=== PATIENT | female | born 1960 | race Caucasian/White ===

== ENCOUNTER 2020-08-04 09:00 | Outpatient (RCR) | payer OTHER, SELFPAY ==
--- NOTE | 2020-08-04 09:05 | BH.SGPN.GN ---
Behaviors/Verbalizations/Mental Status: []Client alert and oriented, neatly dressed and groomed. Eye contact fair. Motor activity appropriate. Speech within normal limits. Affect flat, mood depressed and irritable. Thoughts linear, logical, no signs of hallucinations or delusions. Reviewed client?s symptom tracker, client is not an immediate risk to herself or others. Chronic suicidal ideations. Client Response/Progress/Benefit: C[] Client responded well to session, first day of IOP tx. Client was quiet, but did share her goals which were to gain self-esteem and reduce suicidal ideations. Client would also like to no longer use cutting to cope with difficult emotions. Client reports feeling okay this morning. Client received encouragement from peers and appeared to benefit from sharing with others. Will continue IOP tx to prevent decompensation, maintain safety, and increase healthy coping skills. Narrative Note: []
--- NOTE | 2020-08-04 10:09 | BH.SGPN.GN ---
Behaviors/Verbalizations/Mental Status: []Client alert and oriented, casually dressed and groomed. Eye contact fair to good. Motor activity appropriate. Speech within normal limits. Affect congruent, mood anxious and depressed. Thoughts linear, logical, no signs of hallucinations or delusions. Client Response/Progress/Benefit: []Client new to IOP group. Remaining an active participant AEB contributing some to discussion, taking notes, and engaging in group activity despite anxiety about doing so. Connected with the topic of pitfalls and attentive throughout group discussion on barriers that prevent from choosing a healthier path to mental wellness. Noted pitfalls have kept her from seeking help and working on her mental health in the past or led to giving up. Group worked together to identify examples of personal pitfalls which included; resentment/anger, stigma, shutting down, low motivation, making excuses, denial, distortions, and unhealthy coping. Client identified doubt and negative self-talk as personal pitfalls that have inhibited progress in the past. Mostly engaged during the activity AEB listening to direction from other participants, brainstorming with group, and providing supportive feedback throughout, However, ultimately quit during activity but did well to identify this was due to feeding into negative self-talk messages. Client benefited from group as she learned to better identify potential barriers to improving mental health symptoms. Client will continue IOP tx to promote application of healthy coping skills and reduce depression, improve self-esteem, and improve functioning. Narrative Note: []
--- NOTE | 2020-08-04 11:10 | BH.SGPN.GN ---
Behaviors/Verbalizations/Mental Status: []Client alert and oriented, casually dressed and groomed. Eye contact fair to good. Motor activity appropriate. Speech within normal limits. Affect congruent, mood anxious and depressed. Thoughts linear, logical, no signs of hallucinations or delusions. Client Response/Progress/Benefit: []Client receptive of session, engaged throughout AEB client actively listening, contributing some to discussion, as well as taking notes. Provided some personal examples of how pitfalls have impacted her and expressed connecting with fellow participants throughout group reflection. Client completed worksheet identifying personal pitfalls impacting mental health progress. Client shared she is currently struggling with negative thoughts, poor self-esteem, and focusing on past negative experiences. Attentive during group brainstorm of strategies to overcome pitfalls. Client will work on overcoming her pitfall of negative thinking by identifying and writing down more positive thoughts, as well as beginning to journal more regularly. Benefited from identifying personal pitfalls and strategies to overcome these pitfalls. Will continue IOP tx to improve symptom management, promote healthy change behaviors and improved coping, and prevent decompensation. Narrative Note: []
--- NOTE | 2020-08-04 11:33 | BH.COMM_ITS ---
Communication Note - Communication with Client Communication Note: Met with pt to complete initial paperwork. No significant changes since pre-admission screening. Completed [facility]. Current risk is moderate to severe. Hx of a couple suicide attempts via overdose () and one interrupted attempt via cutting (2020). Hx of chronic SI, with most recent thoughts of suicide being yesterday. Denied any intent to act on these thoughts. Shared her suicidal ideations have been easier to control since she was discharged from inpatient stay. Denies any active SI today. Protective factors. Future-oriented. No access to weapons.
--- NOTE | 2020-08-05 08:49 | BH.MTP ---
Master Treatment Plan - Patient Information Program Physician:: Dr. Mckenzie Pinto Primary Therapist:: Iliana PICKETT - Psychiatric Diagnoses Psychiatric Diagnoses:: Major depressive disorder, recurrent, severe without psychosis F33.2; borderline personality disorder; PTSD; alcohol use disorder (sober for 2 years); history of amphetamine, marijuana and cocaine use over for many years. Diagnosis Code(s):: F 33.2 - Estimated LOS Estimated LOS (in weeks):: 6 Problem/Goal #1 - Problem/Goal #1 Stated Goal:: Client will reduce depressive symptoms, SI, and negative thinking due major depressive disorder. Description of Barriers: Client reports a long-standing history of suicidal ideations, poor view of self, and unhealthy coping. Client presents with numerous negative core beliefs and distorted thought patterns that lead to self-harm, increase suicidal ideations, or cause relationship stress. Client reports limited supports and has a history of substance use. Functional Impact: Client is a 60-year-old female with a history of depression and borderline personality disorder. Client was recently discharged from [facility] on 08/01/20. Prior to admission, client reported suicidal ideations with a plan to kill herself on the anniversary of her mother's . Client had taken a knife into her outpatient therapy session with the intent to hurt herself and was admitted later that week. Client reports chronic history of suicidal ideations and has a history of two previous psychiatric admissions. History of self-harm via cutting. At admission to [facility], client endorsed poor sleep, low appetite, low energy, daily panic attacks, isolative behaviors, anhedonia, and negative thoughts. Client also admits to affective instability, stress-related paranoia, and poor self-image. Client has a history of substance abuse, but denies any current use. Client's symptoms are significantly impacting her social and occupational functioning. Goal Relevant Strengths/Supports: Client is established with [facility] mental health services. Client has an AA sponsor and her roommate Ada is a positive support. Client does not have access to weapons. - Objectives Objective #1 Stated Objective: Client will learn and utilize 2-3 healthy coping strategies to increase self-care and better manage depressive symptoms as shown by preventing decompensation of DSM-5 scores. Interventions: Through group and individual sessions, therapist will help client identify warning signs of depression. Therapist will teach client various coping skills to manage her symptoms and give client tangible resources to use to regulate emotions. Therapist will use cognitive restructuring techniques and help client gain awareness of negative thoughts that reinforce depressive cycles and help client reframe these thoughts. Discharge Criteria: Client will have met this goal when she can report learning and using at least 2 coping skills to manage depressive symptoms and show preventing decompensation of DSM-5 symptoms. Target Date: 09/15/20 Review Date: 09/01/20 Status: open Objective #2 Stated Objective: Client will identify and replace 2-3 negative thinking patterns that reinforce unhelpful action urges, SI, and negative self-talk. Interventions: Through groups and individual therapy, client will be provided with education on cognitive distortions, mistaken beliefs, and identifying and combating negative self-talk. Therapist will assist client in recognizing triggers for increased suicidal and depressive thought patterns. Therapist will help client explore connection between thoughts, feelings, and actions and help client reframe depressive thought patterns. Therapist will help client gain awareness of why client has developed negative thoughts and core beliefs of self. Therapist will use DBT and CBT techniques to challenge unhelpful thought patterns. Discharge Criteria: Client will have accomplished this goal when client can identify and replace at least 2 negative thinking patterns with more realistic, positive statements. Target Date: 09/15/20 Review Date: 09/01/20 Status: open Problem/Goal #2 - Problem/Goal #2 Stated Goal:: Will reduce impulsivity and anxiety through increasing emotional regulation skills Description of Barriers: Client reports a long-standing history of suicidal ideations, poor view of self, and unhealthy coping. Client presents with numerous negative core beliefs and distorted thought patterns that lead to self-harm, increase suicidal ideations, or cause relationship stress. Client reports limited supports and has a history of substance use. Functional Impact: Client is a 60-year-old female with a history of depression and borderline personality disorder. Client was recently discharged from [facility] on 08/01/20. Prior to admission, client reported suicidal ideations with a plan to kill herself on the anniversary of her mother's . Client had taken a knife into her outpatient therapy session with the intent to hurt herself and was admitted later that week. Client reports chronic history of suicidal ideations and has a history of two previous psychiatric admissions. History of self-harm via cutting. At admission to [facility], client endorsed poor sleep, low appetite, low energy, daily panic attacks, isolative behaviors, anhedonia, and negative thoughts. Client also admits to affective instability, stress-related paranoia, and poor self-image. Client has a history of substance abuse, but denies any current use. Client's symptoms are significantly impacting her social and occupational functioning. Goal Relevant Strengths/Supports: Client is established with [facility] for mental health services. Client has an AA sponsor and her roommate Ester is a positive support. Client does not have access to weapons. - Objectives Objective #1 Stated Objective: Client will identify 2 triggers and 2 coping skills to use when client experiences mood dysregulation and has increased urges to engage in unhealthy, impulsive coping skills. Interventions: Through individual and group counseling client will be provided with education on healthy coping skills to manage mood symptoms, impulse, and crisis behaviors. Therapist will provide information on healthy alternatives to emotion release. Individual therapist will teach client DBT techniques to increase emotional regulation and mindfulness. Therapist will also engage client to use self-compassion while working to change behaviors. Discharge Criteria: Client will have accomplished this goal when client can identify at least 2 triggers and 2 coping skills to increase mood stability and reduce unhealthy action urges. Target Date: 09/15/20 Review Date: 09/01/20 Status: open Objective #2 Stated Objective: Client will identify 2-3 anxiety/panic triggers and 2 coping skills to use when feeling anxious to manage anxiety as shown by preventing decompensation of her DSM-5 scores for anxiety. Interventions: Therapist will provide education on anxiety, avoidance behaviors, and maintenance cycles. Therapist will help client explore personal symptoms and warning signs of anxiety. Therapist will teach client coping skills to improve emotional regulation, mindfulness, and distress tolerance to help client cope with anxiety in the moment. Discharge Criteria: Client will have accomplished this goal when she can identify at least 2 triggers and report using 2 coping skills to manage anxiety. Additionally, client will have accomplished this goal AEB prevention of decompensation of DSM-5 scores for anxiety. Target Date: 09/15/20 Review Date: 09/01/20 Status: open
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
[2020-08-05 09:58] VITALS: BP 136/84; PULSE 82
--- NOTE | 2020-08-05 11:07 | BH.SGPN.GN ---
Behaviors/Verbalizations/Mental Status: []Client alert and oriented, neatly dressed and groomed. Eye contact good. Motor activity appropriate. Speech within normal limits. Affect constricted, mood dysthymic. Thoughts linear, logical, no signs of hallucinations or delusions. Client Response/Progress/Benefit: []Client an active participant throughout AEB contributing to discussion and taking notes. Client participated in the group activity highlighting the various barriers to effectively utilizing supports and strategies the group used. Client participated in discussion of the four types of support (emotion, tangible, informational, and social) and the group listed examples for all types. Client reports wanting to work on increasing emotional support through friends, mormon, and counseling. Client stated this will help client feel connected, less alone, and give client something to look forward to. Client plans to do this by continuing IOP and counseling as well as identifying who her current trusted supports are. Client seemed to benefit from identifying the type of support client wants to improve. Will continue IOP tx to prevent decompensation, maintain safety, and reduce self-harm. Narrative Note: []
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
--- NOTE | 2020-08-05 13:00 | BH.DR.ITP ---
Initial Treatment Plan Patient Information Visit Information: ADMISSION DATE: EXPECTED LOS: 4-6 weeks Problems/Symptoms Problem #1:: Depression Symptom:: Sadness, hopelessness, worthlessness, guilt, low energy, decreased appetite, decreased concentration, active and passive suicidal ideation history, passive thoughts of Problem #2:: Anxiety Symptom:: Rumination, worry, panic attacks, hypervigilance, avoidance
--- NOTE | 2020-08-06 09:00 | BH.SGPN.GN ---
Behaviors/Verbalizations/Mental Status: [] Eye contact is good. Motor activity is appropriate. Appearance is casual. Speech is Appropriate. Mood is depressed. Affect is flat. Thoughts are linear and logical. No evidence of psychosis. Reviewed daily check in sheet and pt reports 3/5 for suicidal thoughts and 1/5 for intent. Client Response/Progress/Benefit: [] Pt participated when prompted in group discussions. Attentive during short video on empathy and negative thinking. Emotion for today is depressed. She discussed her anxiety about talking in front of others as she feels that others are judging her. Also fearful that she will say something stupid. This has been an obstacle in the IOP program. Peers empathized with her and provided supportive feedback and reassurance. She discussed her history of self-injurious behaviors and how challenging it has been not to have access to certain items to cut to cope. Limited progress noted. Benefited from group support, feedback, and encouragment. Will continue in IOP to maintain safety, increase healthy coping skills, and improve functioning. Narrative Note: []
--- NOTE | 2020-08-06 10:00 | BH.SGPN.GN ---
Behaviors/Verbalizations/Mental Status: [] Eye contact is good. Motor activity is appropriate. Appearance is casual. Speech is Appropriate. Mood is depressed. Affect is flat. Thoughts are linear and logical. No evidence of psychosis. Client Response/Progress/Benefit: [] Pt participated at times during group discussion. Attentive during psychoeducation on different types of anxiety disorders. Along with peers provided insight on the definition of anxiety as well as the impact of anxiety which include; poor sleep, not completing tasks, poor concentration, impacts relationships, impacts work, and decreases appetite. Pt choose not to sure when peers were identifying physical signs of anxiety . Worked with peers to identify safety behaviors which included avoidance, self-harm, distraction, lashing out, and substance use. Benefited from increased insight and awareness from group discussions. Will continue in IOP to maintain safety and to stabilize mood. Narrative Note: []
--- NOTE | 2020-08-06 11:15 | BH.SGPN.GN ---
Behaviors/Verbalizations/Mental Status: []Client alert and oriented, casually dressed and groomed. Eye contact fair. Motor activity appropriate. Speech within normal limits. Affect constricted, mood anxious.. Thoughts linear, logical, no signs of hallucinations or delusions. Client Response/Progress/Benefit: []Client was an engaged participant AEB pt providing input at times and listening attentively to peers. Reviewed anxious thoughts and safety behaviors client engages in that reinforce anxiety. Identified personal safety behaviors to include: isolation, defensiveness and self-harm. Attentive during psychoeducation on mindfulness coping skills and their impact on mental health wellness. Group was able to identify self-soothing and mind-based coping skills which included: 5-senses, meditation, deep breathing, journaling, and body scan. Client would like to work on daily practice of walking and engaging her 5 senses. Appeared to benefit from increasing repertoire of anxiety reduction skills. Client will continue IOP tx to increase healthy coping skills, challenge distorted thoughts, and prevent decompensation. Narrative Note: []
--- NOTE | 2020-08-07 09:00 | BH.SGPN.GN ---
Behaviors/Verbalizations/Mental Status: [] Eye contact is good. Motor activity is appropriate. Appearance is casual. Speech is Appropriate. Mood is depressed. Affect is flat. Thoughts are linear and logical. No evidence of psychosis. Reviewed daily check in sheet and pt reports 2/5 for suicidal thoughts and 1/5 for intent. Client Response/Progress/Benefit: [] Pt spoke when prompted. Attentive during short video. Shared with the group that she did something wrong yesterday however would not elaborate much. Emotion for today is drained. Looking forward to having her grandnephews over this evening. Group was supportive and provided encouragement. Reframed thoughts that she is a failure and that progress is only linear in MH. Pt appeared to responsive to feedback. No progress noted. Benefited from group feedback. Will continue in IOP to maintain safety and prevent decompensation. Will meet with pt after group to further inquire what occurred yesterday. Narrative Note: []
--- NOTE | 2020-08-07 10:56 | BH.MDN_ITS ---
Multi-Disciplinary Note - Note 60-min Individual Time Started:: 10:00 Date: 08/07/20 Purpose of session/treatment goals addressed:: Pt was tearful in-between groups. Based on check-in therapist met with patient to process current concerns. Eye Contact:: Fair Motor Activity:: Restless Appearance:: Casual Speech:: Appropriate Mood:: Anxious, Depressed Affect:: Congruent Thoughts:: Linear, Logical, No evidence of hallucinations/delusions noted Staff Interventions:: Reviewed safety plan. Risk assessment conducted verbally. Identified alternatives that could have been utilized yesterday during self- injurious event. Identified skills to utilize this weekend (art). Utilized NM techniques to elicit change. Challenged stigma associated with mental health. Utilized positive psychology approaches to instill hope. Called roommate regarding scissors. No access to weapons (All guns removed). Client Response:: Pt tearful. States that she cut herself superficially last night. Showed the scars are in fact superficially. Reports 2 small cuts. Feels guilt and is remorseful about her actions. I feel like I let everyone down and I just want to run away. Reports that she felt depressed and lonely. No trigger or significant stressors I don't know maybe the rain just feels restless. She utilized small scissors which are for grooming. Denies that she had any intent to kill herself. Cut to feel feel better. Reports that cutting is a coping skill to make herself feel better. I feel like a failure... I should not have done that ... There is something wrong with me. We challenged these thoughts and provided evidence that she is resilient and not a failure. This helped her mood. Praised for being honest. She has had these in her possession and has not cut for 11 days which is improvement. Reports that her SI has decreased since starting the program. Her scores where a point less on symptom tracker today than previous days. She is future-oriented. Protective factors. Looking forward that seeing family this weekend. Contracts for safety. Again denies active SI, plan, or intent.We reviewed her safety plan and reviewed the events yesterday using it as a learning experience rather than a punishment. Identified other forms of coping that she could try if she thinks this way again. Identified affirmations to utilize. Pointed out resiliency and was receptive to positive psychology approaches rather than pointing out flaws. I feel like a burden and I'm stupid. Pointed out her insightful comments in group and peers nodding in agreement. Able to identify positives. Risks/Concerns:: Long-standing suicidal thoughts which per pt have reduced in severity, frequency, and intensity since starting the program. Denies active SI, plan, or intent. Future-oriented to events over the weekend. Pt reports she self-harmed to cope. No intent to kill self. She was honest with staff today. Reviewed safety plan that she has had established in the past which involves warning signs, internal skills to utilize, external support to utilize, and if still overwhelmed crisis numbers to contact. No criteria for involuntary admission or to call police. Does not present as imminent danger due to no active SI, plan, or intent. Fleeting SI and thoughts of are long-standing. Superficial cuts with no plan or intent last night. Honest with staff today. No access to guns. Progress Toward Goals/Plan:: Progress noted per pt and daily symptoms tracker for past 4 days. Reduced intensity of SI. Consistent with IOP and enjoys therapist, peers, and staff. Disclosed to staff self-harm today and told staff about scissors earlier in the week. Insight into healthy coping skills to utilize. Plan is to continue in IOP to maintain safety, stabilize mood, and to improve functioning. Call was placed to pt's friend/roommate regarding the scissors who will remove. Pt aware of this call and in agreement. Smiling and joking towards the end of the session. Does well with guidance to manage overwhelming thoughts and urges. Will need more concrete skills and plan for the future. Time Stopped:: 11:00
--- NOTE | 2020-08-10 09:10 | BH.SGPN.GN ---
Behaviors/Verbalizations/Mental Status: [] Eye contact is good. Motor activity is appropriate. Appearance is casual. Speech is Appropriate. Mood is depressed. Affect is flat. Thoughts are linear and logical. No evidence of psychosis. Reviewed daily check in sheet and pt reports 2/5 for suicidal thoughts and 1/5 for intent which is baseline for pt since entering IOP. Client Response/Progress/Benefit: [] Pt was attentive during group discussion on blame however spoke little. Spoke when prompted. Emotion for today is nervous. States that Monday and Monday were good days this weekend, however she struggled on Monday. Reports that she urge to complete self-injurious behaviors. Rather that isolation and ruminate she utilize her support and communicated her needs. Pt and friend went out shopping which was helpful. Support and distraction were helpful and she did not cut self. Progress noted as she was able to use healthy skills to manage overwhelming emotions. Benefited from group support, encouragement, and feedback. Will continue in [facility] to maintain safety, improve functioning, and prevent relapse. Narrative Note: []
--- NOTE | 2020-08-10 10:15 | BH.SGPN.GN ---
Behaviors/Verbalizations/Mental Status: []Client alert and oriented, casually dressed and neatly groomed. Eye contact good. Motor activity appropriate. Speech within normal limits. Affect congruent, mood anxious and dysthymic. Thoughts linear, logical, no signs of hallucinations or delusions. Client Response/Progress/Benefit: []Pt actively engaged in group discussion, taking notes, and listened attentively to others. Pt reflected on quote stating that we sometimes listen to get our point across but aren?t listening to how the person responds. Shared this can result in more conflict rather than resolve it. Reports she struggles with properly managing conflict because she tends to shut down and avoid taking about her thoughts and feelings. Pt stated environment can impact conflict style as you may respond differently depending on if you trust the other person. Pt attentive and engaged during psychoeducation about different conflict styles (avoidant, accommodating, cooperative, and competing). Pt identified most often uses avoiding for external conflict. Seemed to benefit from increased awareness of the different conflict styles. Pt to continue IOP to continue to promote use of healthy coping skills, improve thought challenge skills, and prevent decompensation. Narrative Note: []
--- NOTE | 2020-08-10 11:21 | BH.SGPN.GN ---
Behaviors/Verbalizations/Mental Status: []Client alert and oriented, casually dressed and neatly groomed. Eye contact good. Motor activity appropriate. Speech within normal limits. Affect congruent, mood dysthymic and anxious. Thoughts linear, logical, no signs of hallucinations or delusions. Client Response/Progress/Benefit: []Client engaged in session AEB contributing input to discussion, attentively listening to others, and taking notes throughout. Client providing feedback throughout discussion reviewing remaining conflict resolution styles. Contributed to discussion on strategies for more effectively managing conflict in own life. Client identified wanting to use more collaborative approaches to conflict as she typically gets upset and shuts down and completely avoids conflict. Shared she could begin working on doing so by improving upon her willingness to communicate more when upset rather than shutting down immediately. Appeared to benefit from learning strategies to better manage conflict. Will continue IOP tx to continue to improve management of symptoms, improve healthy coping, and improve daily functioning. Narrative Note: []
--- NOTE | 2020-08-11 09:02 | BH.SGPN.GN ---
Behaviors/Verbalizations/Mental Status: [] Pt eye contact fair, casually dressed, motor activity appropriate, speech normal rate and tone, mood anxious, congruent affect, thoughts linear and intact, no evidence of delusions or hallucinations. Patient indicated a 3/5, with 5 being severe, for suicidal ideation and a 0/5 for suicidal intent on daily symptom tracker. This is a decrease in her baseline. Client Response/Progress/Benefit: []Patient engaged participant as evidenced by sharing thoughts and feelings and listening attentively to peers. Patient shared last night she was experiencing time because her negative and anxious thoughts would not stop. Patient reports she had a difficult time sleeping which is something she often struggles with. Patient reported on the way to groups this morning she started crying for no reason. Patient stated she experienced negative thought patterns because does understand why she is crying and has worries that she will always be like this. Seemed to benefit from therapist helping her challenge disorder thought patterns and receiving education about core beliefs. Patient able to identify positives as mowing grass, getting her pool ready for the summer and made it to IOP today. Patient to continue IOP to improve emotional regulation, challenge disorder thought patterns, and prevent decompensation. Narrative Note: []
--- NOTE | 2020-08-11 10:10 | BH.SGPN.GN ---
Behaviors/Verbalizations/Mental Status: []Eye contact is good. Motor activity is appropriate. Appearance is neat and casual. Speech is Appropriate. Mood is anxious and depressed. Affect is congruent. Thoughts are linear and logical. No evidence of psychosis. Client Response/Progress/Benefit: [] Pt was an engaged participant in group discussions and activity. Shared thoughts on the quote, noting that ?we won? reach our big goals if we ignore small accomplishments? and expressed learning this from own past experiences in not giving herself credit for personal accomplishments. Worked with group members to identify the benefits of setting goals which include: sense of accomplishment, builds self-esteem, increases motivation, holds us accountable, and helps to measure progress. Worked with peers to identify the barriers to setting goals or things that keep us from accomplishing goals. Pt identified personal barrier to achieving goals as self-doubt. Attentive during psycho-education on developing SMART (Specific, Measurable, Achievable, Realistic, Timely) goals. Benefited from education on the benefits of goal-setting and increased insight into skills to set realistic and attainable goals. Narrative Note: []
--- NOTE | 2020-08-11 11:10 | BH.SGPN.GN ---
Behaviors/Verbalizations/Mental Status: []Client alert and oriented, neatly dressed and groomed. Eye contact good. Motor activity appropriate. Speech within normal limits. Affect constricted, mood dysthymic. Thoughts linear, logical, no signs of hallucinations or delusions. Client Response/Progress/Benefit: []Client was engaged during discussion, did well to complete activity and process with the group. Client was willing to complete the worksheet in which she was challenged to develop a personal SMART goal. Client chose the goal to practice self-care for 10 minutes a day for a week. Client stated this will benefit her as it will keep her from self-harming and improve self-worth. Client identified barriers which included: lack of motivation, negative self-talk, and pride that keeps client from asking for help. Client worked with her partner in group to identify solutions for her barriers, and they were able to identify a solution for each barrier. Benefited from this group by developing a short-term SMART goal related to mental health. Client will continue IOP tx to prevent decompensation, maintain safety, and increase emotional regulation skills. Narrative Note: []
--- NOTE | 2020-08-11 15:07 | BH.MDN_ITS ---
Multi-Disciplinary Note - Note 30-min Individual Time Started:: 12:13 Date: 08/11/20 Purpose of session/treatment goals addressed:: The purpose of this session was to gather information on client's current stressors, symptoms, and treatment goals. Another goal was to build rapport and provide psychoeducation. Eye Contact:: Good Motor Activity:: Appropriate Appearance:: Casual Speech:: Appropriate Mood:: Dysthymic Affect:: Constricted Thoughts:: Linear, Logical, No evidence of hallucinations/delusions noted Staff Interventions:: Therapist used active listening and open-ended questions to explore client's current stressors, symptoms, and treatment goals. Therapist used strengths perspective to build rapport and provide emotional support. Therapist provided psychoeducation on borderline personality disorder and emotional regulation. Therapist reviewed some mindfulness skills client can try to when feeling overwhelmed. Client Response:: Client responded well to session, open to meeting with therapist. Client shared she feels hopeless today because she read that borderline personality disorder is the hardest thing to cope with. This made client feel overwhelmed and as though she would have these problems for the rest of her life. Receptive to thought challenging by therapist and able to see how client has control in her treatment. Reviewed the symptoms of BPD and client connected with fear of abandonment, lack of self-esteem and self-worth, poor emotional regulation, history of self-harm, and interpersonal relationship issues. Client shared she often isolates and withdraws from supports rather than asking for help. Client reported when her supports do not read her mind I assume they hate me. Able to use an example from group today to challenge mind- reading which was helpful. Discussed ways to manage BPD symptoms which included mindfulness and distress tolerance. Client agreeable to practice a guided imagery tonight and to refrain from cutting. Risks/Concerns:: Client admits to chronic SI that at this time is passive and fleeting. Client denies any active suicidal ideations, plan, or intent as of 08/11/20. Client denies any access to weapons such as knives, scissors, or guns. Client is future oriented and plans to get dinner with her sister samantha. Progress Toward Goals/Plan:: Client recently started IOP tx, so no progress to document. Client continues to struggle with mood dysregulation, chronic SI, negative self-talk, and fear of abandonment, and self-harming behaviors. Client was receptive to learning about BPD and this gave client some hope about her prognosis. Client will continue IOP tx to prevent decompensation, reduce urges to self-harm, and find alternative coping skills to promote mood stability. Time Stopped:: 12:45
--- NOTE | 2020-08-12 09:00 | BH.SGPN.GN ---
Behaviors/Verbalizations/Mental Status: [] Eye contact is good. Motor activity is appropriate. Appearance is disheveled. Speech is Appropriate. Mood is depressed. Affect is flat. Thoughts are linear and logical. No evidence of psychosis. Reviewed daily check in sheet and pt reports 2/5 for suicidal thoughts and 1/5 for intent. These are baseline for pt. Client Response/Progress/Benefit: [] Pt participated at times. Attentive. Shared with the group that she had dinner with a family member last night. She was extremely anxious about this event and was ruminating exclusively. She states that it actually went well and was positive. Insight that her ruminating and thinking about worst case scenario was not helpful. Emotion for today is happy. Progress noted per pt report. Benefited from group support, encouragment, and feedback. Will continue in IOP to maintain safety, increase healthy coping, and improve functioning. Narrative Note: []
--- NOTE | 2020-08-12 10:10 | BH.SGPN.GN ---
Behaviors/Verbalizations/Mental Status: []Client alert and oriented, neatly dressed and groomed. Eye contact good. Motor activity appropriate. Speech within normal limits. Affect constricted, mood depressed. Thoughts linear, logical, no signs of hallucinations or delusions. Client Response/Progress/Benefit: []Client engaged participant AEB listening to peers and taking notes. Client was quiet, but appeared attentive. Group gave examples of unhealthy coping skills such as avoiding, drugs/alcohol, isolation, and impulsive spending. Group shared that people tend to use unhealthy coping skills because they are easier and provide quick relief. Client participated in the group activity and connected that a healthy foundation of coping skills is composed of healthy internal and external coping skills. Client seemed to benefit from increased awareness of the importance of increasing healthy coping skills and consequences of utilizing unhealthy coping skills. Will continue IOP tx to prevent decompensation and increase emotional regulation skills. Narrative Note: []
--- NOTE | 2020-08-12 11:12 | BH.SGPN.GN ---
Behaviors/Verbalizations/Mental Status: []Client alert and oriented, casually dressed and groomed. Eye contact good. Motor activity appropriate. Speech within normal limits. Affect congruent, mood anxious and depressed. Thoughts linear, logical, no signs of hallucinations or delusions Client Response/Progress/Benefit: []Client responded well to session, taking notes, though remaining a mostly passive participant throughout. Did well to connect with the examples suggested by fellow participants. Group discussed the different categories of coping skills which included distraction, emotional release, grounding, self-love, and thought challenging. Client participated in creating a coping skills ?menu? from the five categories of coping skills. Client's coping skill menu included: journaling, swimming, deep breathing, and thought challenging. Client noted she wants to get better at using thought challenge skills on a more consistent basis as she often struggles with negative self-talk. Appeared to benefit from increasing repertoire of healthy coping skills. Will continue tx to improve daily functioning, increase healthy coping skill application, and further improve mental health sx management. Narrative Note: []
--- NOTE | 2020-08-13 09:00 | BH.SGPN.GN ---
Behaviors/Verbalizations/Mental Status: []client alert and oriented, neatly dressed and groomed. Eye contact good. Motor activity appropriate. Speech within normal limits. Affect flat, mood depressed. Thoughts linear, logical, no signs of hallucinations or delusions. Reviewed client's symptom tracker, reports 3/5 for thoughts of suicide an 2/5 for risk. Therapist will follow up with client and further assess. Client Response/Progress/Benefit: []Client responded well to session, receptive to support from peers. Client reports feeling spaced out this morning due to having a difficult night last night. Client shared she had a session with her outpatient therapist and she didn't give me what I wanted so I went home and sobbed. Client reported she was feeling depressed and wanted to self-harm, but instead she reached out to her roommate for support. Client struggles to give herself credit and minimized her coping efforts, but the group helped client challenge this. Appeared to benefit from group support and from using opposite action. Progress limited as client recently started IOP. Will continue IOP tx to prevent decompensation, reduce SI, and increase emotional regulation skills. Narrative Note: []
--- NOTE | 2020-08-13 10:10 | BH.SGPN.GN ---
Behaviors/Verbalizations/Mental Status: [] Eye contact is good. Motor activity is appropriate. Appearance is casual. Speech is Appropriate. Mood is depressed. Affect is flat. Thoughts are linear and logical. No evidence of psychosis. Client Response/Progress/Benefit: [] Pt participated at times during group discussion and activity. Attentive during psychoeducation. Pt along with peers were able to identify common emotions (both positive and negative) associated with change. Group was able to identify the benefits to making changes such as; personal growth, increased self-esteem, improve mindset, decrease stress, improve emotional health, increase healthy skills, and to get out of same old challenges. Pt and peers were also able to identify some obstacles to making changes which included; low motivation, lack of support, difficult to get out of comfort zone, fear of change, fear of the unknown, fear of repeating past, vulnerability, and asking for help. Pt benefited from group by increasing awareness of emotions and obstacles associated with making changes. Pt will continue in IOP to maintain safety, increase healthy coping, and to prevent decompensation. Narrative Note: []
--- NOTE | 2020-08-13 11:15 | BH.SGPN.GN ---
Behaviors/Verbalizations/Mental Status: []Client alert and oriented, casually dressed and groomed. Eye contact fair. Motor activity appropriate. Speech within normal limits. Affect constricted, mood anxious. Thoughts linear, logical, no signs of hallucinations or delusions. Client Response/Progress/Benefit: []Client responded well to session AEB providing input at times during discussion, engaging in activity, and listening attentively to peers. Client contributed during psychoeducation on the change process and different emotions in each stage of change. Client reports belief she is currently in between contemplation and preparation stages of change. Client stated fear is what is holding her back from getting to preparation stage of change. Client stated reminding self of the potential positives of change could help her overcome current barrier of fear. Appeared to benefit from identifying what stage of change client is in and identifying strategies to overcome barriers. Will continue IOP tx to stabilize moods, increase healthy coping and prevent decompensation.
--- NOTE | 2020-08-13 13:43 | BH.MDN ---
Multi-Disciplinary Note - Note 30-min Individual Time Started:: 12:10 Date: 08/13/20 Purpose of session/treatment goals addressed:: To address current symptoms, assess risk, and review healthy coping skills for the weekend. Eye Contact:: Good Motor Activity:: Appropriate Appearance:: Casual Speech:: Soft Mood:: Dysthymic Affect:: Constricted Thoughts:: Other - evidence of mildly paranoid thoughts, No evidence of hallucinations/delusions noted Staff Interventions:: Therapist used active listening and provided emotional support to client. Therapist processed client's recent stressors, triggers, and engagement in self-harm. Therapist used gentle thought challenging as well as self-compassion techniques. Therapist assessed risk and client does not appear as an immediate risk to herself or others. Therapist helped client develop several positive affirmation statements and then wrote these on sticky notes. Client Response:: Client responded well to session, open to meeting with therapist. Client stated last night was not good and client has been struggling this morning as a result. Client reports she was triggered during her therapy session yesterday with her outpatient therapist. Client shared I don't know if it was my thinking, or if she really is treating me different. Discussed looking at the evidence rather than making assumptions based off emotions. Client admits to struggling with assuming what others think which causes paranoia and leads to impulsive behaviors. Client reported she cut last night after her therapy session, but stopped herself after a bit and reached out to her roommate for help. Client receptive to gentle thought challenging as well as coming up with affirmations. Client's affirmations read: you are okay, this will pass, look at the evidence, and people do care about you. Client will hang these up on her mirror and reports they will be helpful. Client also agreeable to doing art, walking, or going outside as an alternative to self-harm. Client will attend [facility] on Monday. Risks/Concerns:: Client's daily symptom tracker was a 3/5 for thoughts of suicide and 2/5 for risk. Client admits to superficial cutting last night that does not require stitches, but did leave a anabel. Client's roommate is aware and will continue to monitor client. Client denies any active suicidal ideations, plan, or intent as of 08/13/20. Client is future oriented and reports she wants to live because I want to get better. No access to weapons. Reports ability to maintain safety. Progress Toward Goals/Plan:: Client recently started IOP tx, so no progress to document. Client reports benefiting from the structure of IOP as well as the support she gets from staff and peers. Client was able to challenge negative thoughts easier today. Client continues to struggle with mood dysregulation, chronic SI, negative self-talk, and fear of abandonment, stress-related paranoia, impulsivity, and self-harming behaviors. Client was receptive to writing out affirmations and hanging them up on her mirror. Client will continue IOP tx to prevent decompensation, reduce urges to self-harm, and replace distorted thought patterns. Time Stopped:: 12:35
--- NOTE | 2020-08-17 09:00 | BH.SGPN.GN ---
Behaviors/Verbalizations/Mental Status: [] Eye contact is good. Motor activity is appropriate. Appearance is casual. Speech is Appropriate. Mood is depressed. Affect is flat. Thoughts are linear and logical. No evidence of psychosis. Reviewed daily check in sheet and pt reports 2/0 for suicidal thoughts and 0/5 for intent. Client Response/Progress/Benefit: [] Pt participated at times during group discussion. Attentive. Emotion for today is going with the flow. Shared that she struggled at times over the weekend with urges to self-harm however did utilize support and some skills learned in IOP. Admits to getting angry at support however insight that support is trying to help. Progress noted as she utilized skills and support when overwhelmed rather the isolation and self-harm. Benefited from group support, encournagment, and feedback. Will continue in IOP to maintain safety, stabilize mood, and improve functioning to return to work. Narrative Note: []
--- NOTE | 2020-08-17 10:05 | BH.SGPN.GN ---
Behaviors/Verbalizations/Mental Status: []Client alert and oriented, neatly dressed and groomed. Eye contact good. Motor activity appropriate. Speech within normal limits. Affect constricted, mood dysthymic. Thoughts linear, logical, no signs of hallucinations or delusions. Client Response/Progress/Benefit: []Pt was mostly a passive participant in group discussion, but took notes and provided some input. Connected with quote. Attentive during psychoeducation. Pt worked with group to identify forces that can impact growth and overall mental health. Pt was doing a lot of nodding during the metaphor and shared that there are times in life when a person might need someone else to ?help get us in the right direction.? Group discussed examples of positive forces such as healthy coping skills and insight as well as negative forces such as distorted thoughts. Pt benefited from increased awareness of the impact positive and negative forces can have on mental health and personal growth. Will continue IOP tx to learn healthy coping skills, increase emotional regulation skills, and reduce self-harming behaviors. Narrative Note: []
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
--- NOTE | 2020-08-18 09:00 | BH.SGPN.GN ---
Behaviors/Verbalizations/Mental Status: [] Pt eye contact fair to good, casually dressed, motor activity appropriate, speech normal rate and tone, mood anxious and dysthymic, constricted affect, thoughts linear and intact, no evidence of delusions or hallucinations. Patient indicated suicidal ideation as 2/5, denies any plan, and intent rated as 1/5 which is consistent with pt baseline. Client Response/Progress/Benefit: [] Patient receptive of session, engaged throughout AEB sharing thoughts and feelings with group. Identified emotion for the day as ?confused?, noting this is due to experiencing increased anxiety throughout out the night with no apparent trigger. Client shared that she had a positive day yesterday and even went to lunch with a friend which had been a very validating experience. Client noted she has been trying to challenge anxious thoughts and is working on encouraging herself through positive self-talk and deep breathing. Identified this as progress as she usually ruminates throughout the day when having increased anxiety. Receptive of and appeared to benefit from group encouragement and support. Patient to continue IOP to promote healthy change behaviors, continue to improve sx management and mood stability, and prevent decompensation. Narrative Note: []
--- NOTE | 2020-08-18 10:20 | BH.SGPN.GN ---
Behaviors/Verbalizations/Mental Status: []Client alert and oriented, neatly dressed and groomed. Eye contact good. Motor activity appropriate. Speech within normal limits. Affect constricted, mood depressed. Thoughts linear, logical, no evidence of hallucinations or delusions. Client Response/Progress/Benefit: []Client responded well to session, attentive and contributing to discussion. Client worked cooperatively with the group to identify factors that contributed to how we define ourselves which included: upbringing, core beliefs, trauma, social media, past failures, and mental health. Group defined and discussed social and perceived stigma. Client reported she has experienced the impacts of perceived and social mental health stigma. Client shared she often internalizes stigma and has labeled herself as ?a psycho? because of her mental health symptoms. Client also shares that client fears being judged for her mental health, so she struggles to reach out for help. Client seemed to benefit from increased awareness of how mental health stigma can impact view of self. Client to continue IOP tx to prevent decompensation, increase emotional regulation skills, and improve daily functioning. Narrative Note: []
--- NOTE | 2020-08-18 11:15 | BH.SGPN.GN ---
Behaviors/Verbalizations/Mental Status: []Client alert and oriented, casually dressed, hygiene appeared to be tended to. Eye contact fair. Motor activity appropriate. Speech within normal limits. Affect constricted, mood anxious. Thoughts linear, logical, no signs of hallucinations or delusions. Client Response/Progress/Benefit: []Client engaged participant AEB pt providing input during discussion, taking notes and listened attentively to peers. Client worked with group to identify what mental stigma has prevented them from doing. Group brainstormed strategies to combat social and perceived stigma which included: educating others, no longer joking about mental illness , being open about mental health, self-compassion and not reinforcing stigma with behaviors or labels. Client stated she will attempt to decrease perceived stigma by getting out of the house more often and agree to go out when friends ask her. Client shared she often will tell others no when asked if she wants to do something then will have distorted thoughts that no one likes me. Client able to connect how that behavior sets her up. Appeared to benefit from increasing awareness of strategies to combat stigma. Will continue IOP tx to increase healthy coping, improve daily functioning and prevent decompensation. Narrative Note: []
--- NOTE | 2020-08-20 09:00 | BH.SGPN.GN ---
Behaviors/Verbalizations/Mental Status: [] Eye contact is good. Motor activity is appropriate. Appearance is casual. Speech is Appropriate. Mood is depressed. Affect is flat. Thoughts are linear and logical. No evidence of psychosis. Reviewed daily check in sheet and pt was a 2/5 for suicidal thoughts and 0/5 for intent. Client Response/Progress/Benefit: [] Pt participated at times during group discussion. Attentive. Provided appropriate feedback. Shared that mental health win was that she was able to utilize skills to make it through a tough day and make it a good day. Briefly shared that she was overwhelmed however was able to push through. Think is more hopeful and less pessimistic. Future-oriented. Progress noted per pt report. Benefited from group discussion, support, and feedback. Will continue in IOP to maintain safety and increase healthy coping skills. Narrative Note: []
--- NOTE | 2020-08-20 10:10 | BH.SGPN.GN ---
Behaviors/Verbalizations/Mental Status: []Client alert and oriented, neatly dressed and groomed. Eye contact good. Motor activity appropriate. Speech within normal limits. Affect constricted, mood dysthymic. Thoughts linear, logical, no signs of hallucinations or delusions. Client Response/Progress/Benefit: []Pt was an active participant in group discussion and completed group worksheet. Attentive nd taking notes. Group worked together to define anger and discussed the ways anger can impact one internally and externally. Pt reported that anger can be triggered by internal thoughts/feelings or external situations. Pt completed the iceberg exercise and identified emotions that tend to ?live under the surface? of anger. Pt also gained awareness of her typical responses to anger which included: crying, speaking before thinking, avoiding others, ?snapping? at others, and negative self-talk. Pt acknowledges that feeling misunderstand or not important often lead to anger. Benefited from group by increasing understanding of the impact of anger on mental health. Will continue IOP tx to prevent decompensation, improve emotional regulation skills, and reduce the use of unhealthy coping skills. Narrative Note: []
--- NOTE | 2020-08-20 11:12 | BH.SGPN.GN ---
Behaviors/Verbalizations/Mental Status: []Client alert and oriented, casually dressed and groomed. Eye contact good. Motor activity appropriate. Speech within normal limits. Affect congruent, mood dysthymic. Thoughts linear, logical, no signs of hallucinations or delusions. Client Response/Progress/Benefit: []Pt was engaged throughout AEB participating in challenge activity and processing how skills used in activity could relate back to healthy skills for anger management in daily life. Did well to challenge negative thoughts and continue to participate despite noting self-doubt during activity. Contributed as group brainstormed healthy coping skills for better managing anger which included: music, exercise, changing the temperature and environment, art, STOPP, and journaling. Pt expressed relating to how self-doubt and fear sometimes manifests as anger. Pt appeared to benefit from identifying different techniques to manage anger as well as gaining awareness of potential consequences of unmanaged anger. Pt selected the reaching out to supports and exercise as coping skills she would like to try to better regulate anger. Progress noted as pt reports increased use of internal coping mechanisms to manage anxiety rather than relying solely on external. Will continue IOP tx to promote the continued use of healthy coping skills, improve consistent mood stability and use of distress tolerance skills, and further decrease negative thinking. Narrative Note: []
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
--- NOTE | 2020-08-21 10:12 | BH.SGPN.GN ---
Behaviors/Verbalizations/Mental Status: []Client alert and oriented, casually dressed, hygiene appeared to be tended to. Eye contact fair. Motor activity appropriate. Speech within normal limits. Affect constricted, mood anxious. Thoughts linear, logical, no signs of hallucinations or delusions. Client Response/Progress/Benefit: []Client mostly passive participant AEB client providing limited input however did appear attentive to others, taking notes and engaged in activity. Client listened to group to identify impacts of fearing failure. Attentive to group identifying how fear of failure can form which includes: past failures, family dynamics, comparing self to others, and high expectations. Client seemed to connect how failures can lead to positive changes. Client appeared to benefit from gaining awareness of the impact fear of failure can have on one?s mental health and wellbeing. Will continue IOP to continue practicing use of healthy coping, challenge negative thought patterns and prevent decompensation. Narrative Note: []
--- NOTE | 2020-08-21 11:12 | BH.SGPN.GN ---
Behaviors/Verbalizations/Mental Status: []Client alert and oriented, casually dressed and groomed. Eye contact good. Motor activity WNL. Speech within normal limits. Affect constricted, mood anxious and dysthymic. Thoughts linear, logical, no signs of hallucinations or delusions. Client Response/Progress/Benefit: []Client responded well to session, engaged and actively participating throughout. Client completed the fear of failure worksheet and reported that fear of failure has kept client from moving forward in her life and ?getting to the other side of the unknown.? Client able to identify thoughts and behaviors that reinforce personal fear of failure which included: isolation, fear of the unknown, self-doubt, fear of judgement, and being defensive. Client attentive during discussion of the different strategies to help overcome fear of failure. Identified wanting to work on giving herself credit for positives. Client appeared to benefit from learning ways to overcome fear of failure. Will continue IOP tx to prevent decompensation, further reduce suicidal ideations and self-harming thoughts, and increase emotional regulation. Narrative Note: []
--- NOTE | 2020-08-24 10:14 | BH.SGPN.GN ---
Behaviors/Verbalizations/Mental Status: [] Client alert and oriented, casually dressed and groomed. Eye contact fair to good. Motor activity restless. Speech within normal limits. Affect congruent, mood dysthymic and anxious. Thoughts linear, logical, no evidence of delusions or hallucinations. Client Response/Progress/Benefit: []Client engaged throughout session AEB providing input when prompted, taking notes, and actively listening throughout. Appeared to connect with discussion on crisis and how unhealthy coping could result in a personal crisis. Client identified struggling with self-harm and risky driving as prior unhealthy means of managing crisis in the past. Group reflected on examples of what a crisis can be and the importance of having awareness of personal warning signs in order to prevent reaching crisis point. Group identified potential warning signs for crisis and client completed the personal warning signs worksheet. Client identified personal crisis warning signs to include: negative thinking, isolating, crying, and difficulty concentrating. Client reports they can tell when struggling if feeling more negative than usual or difficulties in sleeping. Client benefited from increasing awareness of what leads to crisis and personal warning signs. Client will continue IOP tx to prevent decompensation, improve daily functioning, and increase healthy coping skills. Narrative Note: []
--- NOTE | 2020-08-24 11:15 | BH.SGPN.GN ---
Behaviors/Verbalizations/Mental Status: []Client alert and oriented, casually dressed and groomed. Eye contact fair. Motor activity appropriate. Speech within normal limits. Affect constricted. Mood anxious. Thoughts linear, logical, no signs of hallucinations or delusions. Client Response/Progress/Benefit: []Client responded well to session as evidenced by client listening attentively to others and providing strategies during discussion. Client identified her warning signs for crisis and gained further awareness of earliest warning signs. Client created a crisis action plan to help client better manage warning signs for crisis. Client?s action plan for negative thinking included: reframing negative thought, reminding self thoughts are thoughts not facts, exercise, and listen to music. Client appeared to benefit from creating a crisis action plan and increasing self-awareness.Client to continue IOP tx to increase consistent use healthy coping, challenge distorted thoughts and prevent decompensation.
--- NOTE | 2020-08-24 11:22 | BH.MDN_ITS ---
Multi-Disciplinary Note - Note 30-min Individual Time Started:: 09:00 Date: 08/24/20 Purpose of session/treatment goals addressed:: To address client's panic symptoms and urges to self-harm using calming and thought challenging skills. Eye Contact:: Good Motor Activity:: Restless Appearance:: Neat Speech:: Appropriate Mood:: Anxious, Depressed Affect:: Congruent - tearful Thoughts:: Racing, No evidence of hallucinations/delusions noted Staff Interventions:: Therapist lead client through the 5-senses and other grounding techniques to reduce panic. Therapist provided psychoeducation on addiction and depression. Therapist provided hope by helping client reframe her negative thoughts and reflecting on growth. Therapist explored coping skills and activities client could engage in today. Client Response:: Client entered session highly anxious and appeared to be close to a panic attack. Client was receptive to meeting with therapist and did well during the grounding exercises. Client became less restless and stopped crying. Client shared she went to calling hours for a friend's mother last night which triggered memories of her mother's . Client shared thinking of her mother's makes her sad and feel guilty. Client states feeling guilty because when her mother , client was in active addiction. Client receptive to psychoeducation on how addiction changes the brain and this helped client be less harsh on herself. Client also receptive to thought challenging as client was expressing numerous all or nothing thought patterns. Client and therapist discussed grounding coping skills client could use tonight to avoid cutting. Client plans to plant her garden, write, or draw. Client reports she does not want to cut and wants to keep getting better. Client left session with less anxiety and a plan for this evening which appeared to help regulate client's mood. Risks/Concerns:: Client reports she woke up this morning with urges to self-harm as well as fleeting suicidal ideations. Client denies any active suicidal ideations, plan, or intent as of 08/24/20. Client denies cutting. Future oriented and able to create a plan to prevent self-harm today. Progress Toward Goals/Plan:: Client experienced a grief/trauma trigger yesterday which client acknowledges is the reason for client?s panic and increase urges to self-harm today. Client did not engage in self-harm which is progress. Client does well with thought challenging and by the end of session she was more optimistic and hopeful. Client continues to endorse a depressed mood, crying spe lls, chronic SI, emotional dysregulation, irritability, and severe all or nothing thinking. Client did not start EMDR therapy last week as client was not ready. Client will continue IOP tx to prevent decompensation, maintain safety, and increase emotional regulation skills. Time Stopped:: 09:20
--- NOTE | 2020-08-25 09:00 | BH.SGPN.GN ---
Behaviors/Verbalizations/Mental Status: [] Eye contact is poor. Motor activity is appropriate. Appearance is casual. Speech is Appropriate. Mood is depressed. Affect is flat. Thoughts are linear and logical. No evidence of psychosis. Reviewed daily check in sheet and pt reports 4/5 for suicidal ideations and 0/5 for intent. Therapist notified. Client Response/Progress/Benefit: [] Pt participated when prompted. Attentive. Emotion for today is depressed. Pt shared that yesterday was a bad day. Ruminated all day on why she was depressed as there was no trigger. Per patient I should be happy today but I'm not. Today she is 2 years sober. Group provided feedback and some suggestions on spending too much time trying to find out why she is depressed and helped reframe her thoughts which was beneficial. Limited progress noted per pt. Benefited from group support and feedback. Will continue in IOP to maintain safety, stablize mood, and improve functioning to return to work. Narrative Note: []
--- NOTE | 2020-08-25 10:16 | BH.SGPN.GN ---
Behaviors/Verbalizations/Mental Status: []Client alert and oriented, casually dressed and groomed. Eye contact good. Motor activity appropriate. Speech within normal limits, soft. Affect congruent, mood depressed and anxious. Thoughts linear, logical, no signs of hallucinations or delusions Client Response/Progress/Benefit: [] Client engaged in session AEB client providing some input, taking notes, and listening attentively to peers. Client shared connecting with the importance of setting boundaries, but noted ?I usually don?t set boundaries because I?m afraid of failing others or myself?. Client assisted group with identifying barriers to setting healthy boundaries. These included: fear of abandonment, fear of being vulnerable, self-doubt, discomfort, and feeling it?s ?too hard?. Shared a personal barrier she has experienced in the past is struggling with not wanting others to ?see the real me and all my flaws?. Listened as participants provided examples and noted struggling with boundaries when it comes to sharing with others emotionally. Client seemed to benefit from increased awareness of how boundaries impact mental health. Will continue IOP tx to improve use of healthy coping, improve consistent thought challenge skills, maintain safety, and reduce mental health sx. Narrative Note: []
--- NOTE | 2020-08-25 11:19 | BH.SGPN.GN ---
Behaviors/Verbalizations/Mental Status: []Client alert and oriented, neatly dressed and groomed. Eye contact good. Motor activity appropriate. Speech within normal limits. Affect constricted, mood dysthymic and anxious. Thoughts linear, logical, no signs of hallucinations or delusions. Client Response/Progress/Benefit: []Client responded well to session, connecting with peers and receptive to supportive statements. Client engaged during psychoeducation on the different boundary styles. Client reported she has rigid boundaries as client struggles with opening up emotionally to others. Client stated she also fears rejection and what other people will think of her. Client shared being rigid with boundaries has caused relationship issues. Client participated in brainstorming strategies to improve boundary setting. Client wants to work on the strategy of avoiding excessive apologizing. Seemed to benefit from increased awareness of how current boundary style impacts mental health and learning different strategies to improve boundary style. Client to continue IOP tx to prevent decompensation, increase emotional regulation skills, and reduce frequency of SI. Narrative Note: []
--- NOTE | 2020-08-25 12:36 | BH.COMM ---
Communication Note - Communication with Client Communication Note: Pt scores on daily sx tracker indicated higher risk for SI than baseline, denies any intent. Pt open to checking-in with therapist to further assess for risk. Discussed increased passive thoughts last night but is not experiencing these today. Notes plans to work outside and feels able to keep self safe. Reviewed coping skills and indicates willingness to reach out to crisis services if feeling unable to maintain safety at any time.
--- NOTE | 2020-08-27 09:04 | BH.SGPN.GN ---
Behaviors/Verbalizations/Mental Status: []Client alert and oriented, neatly dressed and groomed. Eye contact good. Motor activity appropriate. Speech within normal limits. Affect constricted, mood anxious. Thoughts linear, logical, no signs of hallucinations or delusions. Reviewed client?s symptom tracker and scores were below client's baseline. No risk as of 08/27/20 Client Response/Progress/Benefit: []Client responded well to session, attentive and receptive to feedback. Client reports feeling anxious this morning and shared that she is having a hard time sitting still. Client has her first session of EMDR tonight and client is worried about how this will go. Group offered support and reassurance. Client has been using opposite action such as cleaning and mowing when she feels depressed. Client appeared to benefit from connecting with peers who have also done EMDR. Progress noted in client's reduced SI, but she continues to struggle with emotional dysregulation. Will continue IOP tx to prevent decompensation, learn healthy coping skills, and improve overall functioning. Narrative Note: []
--- NOTE | 2020-08-27 10:20 | BH.SGPN.GN ---
Behaviors/Verbalizations/Mental Status: []Eye contact is good. Alert and oriented. Motor activity is appropriate. Appearance is casual. grooming is appropriate. Speech is Appropriate. Mood is anxious, dysthmic. Affect is constricted. Thoughts are linear and logical. No evidence of psychosis or hallucinations. Client Response/Progress/Benefit: [] Client receptive to session, engaged, and participated in discussion and group activity though provided little verbal input throughout. Client connected with topic of managing emotions, nodding as participants discussed potential benefits of emotion regulation. Remained engaged throughout discussion on common barriers to effective emotion regulation which included: shutting down, lack of healthy coping skills, learned behaviors, toxic people/environment, and suppressing emotions. Identified personal barrier of managing emotions as shutting down. Attentive throughout challenge activity, though again remained in a passive participatory role. Client appeared to benefit from gaining increased awareness on common emotion regulation barriers and impacts of ineffective emotion regulation on mental health and personal relationships. Progress remains variable as client continues to struggle with effective emotion regulation in times of distress. Will continue IOP to promote continued use of healthy coping skills, improve consistent mood stability, and prevent decompensation. Narrative Note: []
--- NOTE | 2020-08-27 11:20 | BH.SGPN.GN ---
Behaviors/Verbalizations/Mental Status: []Client alert and oriented, casually dressed and fairly groomed. Eye contact fair. Motor activity appropriate. Speech within normal limits. Affect constricted. Mood dysthymic. Thoughts linear, logical, no signs of hallucinations or delusions. Client Response/Progress/Benefit: []Client engaged in session AEB client providing input during discussion and completed worksheet. Attentively listening during psychoeducation on 4 zones of regulation and able to identify feelings and behaviors for each zone. Worked with group to identify coping skills one can use to support self in each zone. Client reported she most often is in the extremely heightened state (red zone) and low state of alertness (blue zone). Client stated going from red and blue zones keeps her from functioning and has ruined my life. Benefited from increased education on zones of regulation or stages of alertness for emotions and healthy coping skills to use for each zone. Will continue IOP tx to increase consistent use of healthy coping skills, challenge distorted thoughts and prevent decompensation.
--- NOTE | 2020-08-28 09:01 | BH.SGPN.GN ---
Behaviors/Verbalizations/Mental Status: [] Pt eye contact good, casually dressed, motor activity appropriate, speech normal rate and tone, mood euthymic, congruent affect, thoughts linear and intact, no evidence of delusions or hallucinations. reviewed client?s symptom tracker, patient indicated a 1/5, with 5 being severe for thoughts and a 0/5 for suicidal intent. This is below patient's baseline. Client Response/Progress/Benefit: []Client responded well to session as evidenced by listening attentively to others and sharing thoughts and feelings. Client reported mental positive as recognizing her panic attack symptoms and utilizing like positive self talk like this will pass to help her get through it. Client minified additional mental positives as attending her first EMDR therapy session and being productive around the house. Client identify current stressor is her sister visiting which patient stated my sister does not think I do anything right. Client did identify additional stressor as struggling with getting sufficient amount of sleep. Client stated waking up multiple times throughout the night because of racing thoughts. Client seem to benefit from support from peers. Client to continue IOP to continue use of healthy coping skills, challenge negative thought patterns, and prevent decompensation. Narrative Note: []
--- NOTE | 2020-08-28 10:10 | BH.SGPN.GN ---
Behaviors/Verbalizations/Mental Status: [] Eye contact is good. Motor activity is appropriate. Appearance is casual. Speech is Appropriate. Mood is anxious. Affect is congruent. Thoughts are linear and logical. No evidence of psychosis Client Response/Progress/Benefit: [] Pt participated at times during group discussion and activity. Pt was attentive during psychoeducation. Participated with peers in identifying benefits to effective communication which included increased clarity, healthier relationships, needs/concerns are being addressed, improved mental health, decreased confusion/distortions, and helps one reach goals. Pt identified her barrier to effective communication is being fearful that I will make the other person upset . Benefited from group by identifying barriers to effective communication and through insight an awareness. Will continue in IOP to maintain safety, increase health coping skills, and prevent decompensation. Narrative Note: []
--- NOTE | 2020-08-28 11:13 | BH.SGPN.GN ---
Behaviors/Verbalizations/Mental Status: [] Client alert and oriented, casually dressed and groomed. Eye contact fair to good. Motor activity appropriate. Speech within normal limits. Affect congruent, mood dysthymic. Thoughts linear, logical, no signs of hallucinations or delusions. Client Response/Progress/Benefit: [] Client receptive of session, providing some input and taking notes throughout. Client remained attentive, though mostly passive, during psychoeducation on the four communication styles. Client reported she is mostly a passive communicator, however, is often aggressive in how she communicates with herself. Client noted that the passive communication style had impacted her by feeling her needs aren?t being met and the aggressive reinforces negative core beliefs. Attentive and contributing as group brainstormed strategies for improving effective communication. Benefited from increased insight regarding own communication style and impacts this has on overall mental health. Client identified personal communication goal is to begin trying to practice saying ?no? to others more often. Client progressing as shown by increased mood stability and reported reduction in suicidality. Will continue IOP tx to maintain gains, further improve self-esteem and prevent decompensation. Narrative Note: []
== END 2020-08-31 23:59 ==
LOC: BHIOP 09:00
PROVIDERS: PCP Nurse Practitioner Family; Referring Provider Psychiatry & Neurology Psychiatry; Visit Provider Psychiatry & Neurology Psychiatry
DX: F33.2 Major depressive disorder, recurrent severe without psychotic features (principal); F60.3 Borderline personality disorder; F43.10 Post-traumatic stress disorder, unspecified; Z72.89 Other problems related to lifestyle; Z62.810 Personal history of physical and sexual abuse in childhood; Z91.5 Personal history of self-harm; F10.11 Alcohol abuse, in remission; F12.90 Cannabis use, unspecified, uncomplicated; F14.11 Cocaine abuse, in remission; F15.11 Other stimulant abuse, in remission
CPT/HCPCS: H0035; 90832; 90834; 90837; 90853

== ENCOUNTER 2020-09-01 09:00 | Outpatient (RCR) | payer OTHER, SELFPAY ==
[2020-09-01 00:39] VITALS: BP 136/84; PULSE 82
--- NOTE | 2020-09-01 10:00 | BH.MDN ---
Multi-Disciplinary Note - Note 30-min Individual Time Started:: 09:20 Date: 09/01/20 Purpose of session/treatment goals addressed:: To work on goal #2 of client's TX plan. Another goal was to discuss sleep concerns. Eye Contact:: Good Motor Activity:: Appropriate Appearance:: Neat Speech:: Appropriate Mood:: Anxious Affect:: Congruent Thoughts:: Linear, Logical, No evidence of hallucinations/delusions noted Staff Interventions:: Therapist used strengths perspective to help client recognize progress. Therapist used cognitive restructuring and encouraged client to practice positive self-talk. Therapist reviewed healthy coping skills with client. Client Response:: Client responded well to session, open to meeting with therapist. Client reports she is feeling anxious about work and having a lot of negative thoughts. Client is worrying about what her co-workers will say and how they will react to client. Client also fears that she will lash out at others like she has in the past or become emotionally unstable. Client able to recognize her use of distortions and with help can challenge these. Client also mentioned that she has been feeling restless and having some issues with sleep. Client has been getting EMDR therapy in addition to IOP which could be a factor impacting sleep. Client reports this has been a long-standing problem, though. Client has never had a sleep study and was encouraged to explore this. Client and therapist reviewed healthy coping skills client can use to manage anxiety such as positive self-talk, walking, breathing, and thinking before she reacts. Risks/Concerns:: Chronic SI, but reporting that her SI has decreased since starting IOP tx. Denies any active SI, plan, or intent. Future oriented and reports ability to maintain safety. Progress Toward Goals/Plan:: Client is making progress towards TX goals AEB DSM-5 scores decreasing and client's self-report of practicing coping skills. Client continues to endorse high anxiety and panic about work, but client's ability to cope has increased. Client continues to struggle with challenging negative thinking and endorses a depressed mood. Will continue IOP tx to promote the use of healthy coping skills, combat distortions, and increase emotional regulation skills. Client to see Dr. Pinto about sleep issue. Time Stopped:: 09:55
--- NOTE | 2020-09-01 10:10 | BH.SGPN.GN ---
Behaviors/Verbalizations/Mental Status: [] Eye contact is good. Motor activity is appropriate. Appearance is casual. Speech is Appropriate. Mood is depressed. Affect is flat. Thoughts are linear and logical. No evidence of psychosis. Client Response/Progress/Benefit: [] Pt participated at times during the group discussion. Active participant in group activity. Attentive during psychoeducation on factors that build resiliency. Worked with peers to to define resiliency in which they settled on bouncing back from difficult times. Along with peers also identified what could impact resilience which included; environment, upbringing, family MH beliefs, poverty, support, trauma, never learning coping skills, and emotions. Insight in how group experiential activity in which therapist induced chaotic environment impacted resilience and how group overcame it. Pt benefited by increasing awareness on the role of resilience in mental health and factors that can help build resiliency. Will continue in IOP to maintain safety, prevent decompensation, and improve functioning to return to work. Narrative Note: []
--- NOTE | 2020-09-01 11:14 | BH.SGPN.GN ---
Behaviors/Verbalizations/Mental Status: []Client alert and oriented, neatly dressed and groomed. Eye contact good. Motor activity appropriate. Speech within normal limits. Affect congruent, mood content. Thoughts linear, logical, no signs of hallucinations or delusions. Client Response/Progress/Benefit: []Client responded well to session, engaged and participated throughout discussion. Client participated in the discussion of how each resiliency component can help increase personal resiliency. Client worked with group to identify ways to practice each of the resiliency traits reviewed. Client shared belief client has the resiliency trait of practicing self-care. Client stated she does well to take care of her physical health and client has also not cut in several weeks. Client would like to work on increasing resiliency by moving towards her goals and practicing more positive self-talk to increase the credit she gives herself. Appeared to benefit from reflecting on already existing resiliency traits and learning how to strengthen resilience. Will continue IOP tx to promote gains, further reduce emotional reactivity, and improve daily functioning. Narrative Note: []
--- NOTE | 2020-09-01 14:21 | BH.TPR ---
Treatment Plan Review Date of Admission:: 08/04/20 Date of Treatment Plan Review:: 09/01/20 Admitting Diagnoses:: Major depressive disorder, recurrent, severe without psychosis F33.2; borderline personality disorder; PTSD; alcohol use disorder (sober for 2 years); history of amphetamine, marijuana and cocaine use over for many years. Current Diagnoses:: Major depressive disorder, recurrent, severe without psychosis F33.2; borderline personality disorder; PTSD; alcohol use disorder (sober for 2 years); history of amphetamine, marijuana and cocaine use over for many years. Patient's Response to Treatment:: Pt has responded well to treatment AEB pt consistently attending IOP sessions and her reduction of DSM-5 scores. Pt contributes well to discussion and listens well to peers during group sessions. Pt applies coping skills outside of IOP and is mostly consistent with homework. Pt continues to struggle with emotional dysregulation, communicating with support, and catching distorted thought patterns. Status of Current Problems and Symptoms: Pt is showing progress, but her presenting problems are ongoing. Pt continues to struggle with emotional dysregulation, depression with passive suicidal ideations, anxiety, impulsivity, and distorted thought patterns. Pt has been reporting less suicidal ideations, however, pt's mood and SI continue to be dependent on external circumstances. Pt currently working on improving emotional regulation skills, catching distortions, and improving communication. Problem #1 Problem Name:: Depression and suicidal ideations Status of Goals:: Objective 1- in progress, but not complete. pt's DSM-5 scores for depression have decreased 43% since admission. Thoughts of actually hurting herself have decreased by 33% since admission. Pt has been learning many coping skills and has been able to reduce self-harm. Pt continues to struggle with prolonged mood stability. Objective 2-in progress, but not complete. pt has gained awareness of her distorted thought patterns and does well to be challenged during session. pt struggles with identifying and challenging these thoughts on her own. Team Recommendations:: Tx team recommends ongoing work on these goals as well as a support session with pt's friend, Ester, to improve communication and thought challenging. Problem #2 Problem Name:: Emotional dysregulaton, anxiety, and impulsivity. Status of Goals:: Objective 1- complete with ongoing work encouraged. Pt can identify triggers to self-harm, anger, and other unhealthy behaviors. Pt has been working on replacing these unhealthy skills with healthier skills such as drawing, writing, positive self-talk, and breathing. Objective 2- in progress. Pt can identify triggers for anxiety and panic and reports practicing the skills above. Pt?s DSM-5 scores for anxiety decreased by 25%. Pt reports panic attacks have decreased in frequency each week. Pt does report using her medications more than prescribed on occasion which is a concern. Team Recommendations:: Tx team recommends that pt and therapist create a return to work plan to help pt better manage anxiety and emotional dysregulation at work.
--- NOTE | 2020-09-02 12:14 | PCM.BH.PN_ITS ---
Progress Note Progress Note: History of Present Illness/Interim History: [] The patient is a 59-year-old female who is seen in follow-up at the [facility] behavioral health IOP program. She has a history of PTSD, depression and borderline personality disorder and was discharged from the psychiatric unit on August 01, 2020. I last saw the patient 3 weeks ago and at that time no medication changes were made as she had recently started these medications well and an inpatient. The patient states that she is still having some issues with sleep but she gets about 5 hours of sleep at night total. She gets to sleep okay but wakes up during the night sometimes. She is learning skills but she sometimes has a hard time learning her new skills in the moment of stress. She patient's panic attacks have decreased to about 3 times a week now. She occasionally has rare fleeting suicidal ideation still but she knows that she absolutely does not want to kill herself. She denies any active suicidal ideation or passive thoughts of . She has occasional thoughts of self-harm and she has cut herself twice since she was discharged from the hospital. The most recent episode was 2 weeks ago but it was minor and did not require stitches. Since that time her roommate has removed all the knives and she has n ot engaged in any other self-harm and is not thinking about it much. Guns and others weapons have already been removed from the house. Her counselor at the IOP program also took a scissors from her that she was carrying in her car a few weeks ago. She agrees to try to decrease caffeine use in the afternoon. She has been compliant with her medications and denies any alcohol or drug use. She is a little nervous about returning to work 2 days a week next week. She already has appointment with her new outpatient counselor. Current Psychiatric Medications: [] Abilify 5 mg p.o. daily (times since July 19, 2020); BuSpar 15 mg p.o. twice daily; Zoloft 200 mg p.o. daily (on this dose for 4 weeks now); trazodone 150 mg p.o. nightly; Vistaril 50 mg taking it about 3 times a day. Mental Status Examination: [] The patient is a 59-year-old female who is seen wearing a mask due to the pandemic and is casually dressed and groomed with good hygiene. There is no psychomotor agitation or retardation. Eye contact is good and speech is normal rate and rhythm and fluent with no pressure. Mood is depressed. Affect is constricted mildly. Thought process is goal-directed and organized. Thought content: There is evidence of fleeting passive suicidal ideation and occasional thoughts of self-harm. There is no evidence of active suicidal ideation, plan for suicide, homicidal ideation, passive thoughts of . There is no evidence of hallucinations or delusions. Judgment is intact. Insight is limited but improving. Impulsivity is high. Diagnoses: [] [place] I: [] Borderline personality disorder; major depressive disorder, recurrent, severe without psychosis; PTSD; alcohol use disorder (sober for 2 years); history of amphetamine, marijuana and cocaine use in the past. [place] III: [] Negative [place] IV:[]] Primary support issues Plan: [] The patient will continue the IOP program at [facility] as the structure, support, education, and group therapy will hopefully prevent worsening of the patient's symptoms which might require hospitalization. She felt safe during the interview and if it anytime she does not feel safe she will let us know or go to the emergency room. The risk, options, possible complications and side effects of medications were again discussed with the patient and she understands and accepts these. The patient also discussed strategies that she is learning here to use instead of engaging in self-harm. She agrees to increase her trazodone to 200 mg p.o. nightly if needed when she has difficulty sleeping. She will continue the rest of her medications on the dosage currently. I will see the patient in follow-up in 1 to 2 weeks and she will continue to follow-up with her outpatient medical and psychiatric provide rs.
--- NOTE | 2020-09-03 09:04 | BH.SGPN.GN ---
Behaviors/Verbalizations/Mental Status: [] Pt eye contact fair, casually dressed, motor activity appropriate, speech normal rate and tone, mood angry, congruent affect, thoughts linear and intact, no evidence of delusions or hallucinations. Per patient symptom tracker patient indicates a 3/5 with 5 being severe and a 1/5 for suicidal intent. This is pt's baseline. Client Response/Progress/Benefit: []Pt overall engaged participant AEB pt listening attentively to others and sharing some thoughts and feelings. Pt stated she didn't really want to check-in this morning because was too upset about a stressor from yesterday. Pt reported yesterday she was told she couldn't qualify for her concealed carry license because she indicated on her application that she was hospitalized for psychiatric reasons. Pt expressed anger over the situation. Open to support and therapist helping her challenge distorted thoughts. Progress noted with pt stopping self from reverting back to self-injury as a coping skill. Pt did report feeling guilty for leaving her outpatient therapist a nasty voicemail because she was blaming therapist for having pt hospitalized. Pt to continue IOP to continue use of healthy coping skills, challenge negative thoughts and prevent decompensation. Narrative Note: []
--- NOTE | 2020-09-03 10:10 | BH.SGPN.GN ---
Behaviors/Verbalizations/Mental Status: [] Eye contact is good. Motor activity is appropriate. Appearance is casual. Speech is Appropriate. Mood is anxious. Affect is congruent. Thoughts are linear and logical. No evidence of psychosis. Client Response/Progress/Benefit: [] Pt was an active participant in group discussion and activity. Insight during activity that finding positive aspects of a picture was more challenging than identifying negatives. Pt along with peers were able to identify what could impact one's perspective which included; upbringing, core beliefs, environment, relationships, and sleep. Group was able to identify how a negative perspective could impact progress in mental health treatment leading to beliefs such as; I will not get better, nobody understands me, apathy, withdrawing, irritability, catastrophizing, disqualifying positives, focusing on flaws, personalizing, labeling, focusing on negatives, and convincing one to quit. Benefited from group by increasing awareness on the role of perspective in mental health wellness. Will continue in IOP to maintain safety, improve healthy coping, and transition back to work. Narrative Note: []
--- NOTE | 2020-09-03 10:17 | BH.SGPN.GN ---
Behaviors/Verbalizations/Mental Status: []Client alert and oriented, neatly dressed and groomed. Eye contact good. Motor activity appropriate. Speech within normal limits. Affect constricted, mood irritable and depressed. Thoughts linear, logical, no signs of hallucinations or delusions. Client Response/Progress/Benefit: []Pt engaged participant AEB pt providing input throughout session, listening attentively to peers and completing strengths exploration handout. Pt did struggle to identify strengths which included honesty, love and fairness. Pt stated these strengths will help client?s mental health recovery by helping pt communicate to her providers, understand and include others, and begin to practice self-love. Pt seemed to benefit from increased awareness of personal strengths and improved understanding how perspective can impact view of self. Pt is to continue IOP tx to improve work-related functioning, reduce distorted thought patterns, and improve emotional regulation skills. Narrative Note: []
--- NOTE | 2020-09-03 14:15 | BH.MDN ---
Multi-Disciplinary Note - Note 30-min Individual Time Started:: 12:20 Date: 09/03/20 Purpose of session/treatment goals addressed:: To address a recent trigger and work on goal #2 of client's tx plan. Eye Contact:: Good Motor Activity:: Restless Appearance:: Casual Speech:: Appropriate Mood:: Anxious, Irritable Affect:: Congruent Thoughts:: Other - ruminating Staff Interventions:: Therapist used calming skills to help client regulate emotions in the moment. Therapist gently challenged client's distorted thought patterns and encouraged client to practice positive self-talk. Therapist taught client the STOP technique and reviewed different emotional regulation skills. Gave client homework to create a visual for the STOP technique. Client Response:: Client responded well to session, open to meeting with therapist. Client shared she felt very angry yesterday because she could not get her concealed carry license renewed. Client shared this was because client had a recent hospitalization. Client shared she became angry at her outpatient therapist sharing she was the one who made me go. Client left her outpatient therapist a nasty voicemail which client now regrets. Client began using numerous distorted thoughts and negative self-talk. Receptive to thought challenging and focusing on what client can control now. Client also did well to reframe her all or nothing thinking. Client practiced deep breathing techniques and reviewed the STOP technique. Client felt like this technique was helpful as it slowed client down and allows her to think before reacting. Client will create a visual for this technique and write out other helpful coping skills on it. Client shared that going for walks and using positive self-talk has been helpful. Risks/Concerns:: Client reports passive SI today, but denies any suicidal ideations, plan, or intent as of 09/03/20. Denies any access to weapons. Future oriented and motivated to get better. Progress Toward Goals/Plan:: Client reports increased anger today due to not being able to get her concealed carry license. Client did have an anger outburst towards her outpatient therapist, but she stopped herself from self-harming which is progress. Client plans to apologize to her therapist. Client continues to endorse difficulty regulating emotions and is continuing to work on reducing impulsivity. Endorses anxiety, rumination, negative self-talk, sleep issues, and restlessness. Will continue IOP tx to prevent decompensation, promote gains made in reduced self-harm, and increase confidence in coping skill use. Time Stopped:: 12:56
--- NOTE | 2020-09-04 09:00 | BH.SGPN.GN ---
Behaviors/Verbalizations/Mental Status: [] Eye contact is good. Motor activity is appropriate. Appearance is casual. Speech is Appropriate. Mood is depressed/irritable. Affect is congruent. Thoughts are linear and logical. No evidence of psychosis. Reviewed daily check in sheet and pt reports 2/5 for suicidal thoughts and 0/5 for intent. Client Response/Progress/Benefit: [] Pt was an active participant in group discussion. Attentive. Emotion for today is depressed. Daily symptom tracker notes 4/5 for depression, 3/5 for anxiety and anger. Pt reports that she remains pissed off that she was denied a CCW license. Insight about the reasons for the denial and is able to see that this may be for the best however difficulty ruminating that her rights were taken away. Mental health win is that she is not as angry as I was and believes that she is coping as best she can. Impact of this setback has not led to self-injurious behaviors or other unhealthy behaviors. She attended her first EMDR session last night which she reports went well and she is optimistic about this in the future. Also reports that she has apologized to her outpatient therapist for getting upset with her. Progress noted per pt report. Benefited from group support and feedback. Will continue in IOP to maintain safety, increase healthy coping, and improve functioning to return to work. Narrative Note: []
--- NOTE | 2020-09-04 10:10 | BH.SGPN.GN ---
Behaviors/Verbalizations/Mental Status: []Client alert and oriented, casually dressed and groomed. Eye contact good. Motor activity appropriate. Speech within normal limits. Affect constricted, mood anxious. Thoughts linear, logical, no signs of hallucinations or delusions. Client Response/Progress/Benefit: []Client receptive to session, participating throughout. Provided input as the group brainstormed the positive and negative aspects of stress on physical and mental health. Group did well to identify the benefits of stress as well as the impact of distress on performance and mental health. Client identified stress jar includes: anger, living with the unknown, lack of social skills, over-thinking, family and work. Client reports when her stress jar becomes overfilled her reaction is anger outburst and depressed. Pt seemed to benefit from increased awareness of current stressors and importance of dealing with stressors. Recommended to continue IOP tx to improve emotional regulation, challenge negative thoughts and prevent decompensation.
--- NOTE | 2020-09-04 11:15 | BH.SGPN.GN ---
Behaviors/Verbalizations/Mental Status: []Client alert and oriented, neatly dressed and groomed. Eye contact good. Motor activity appropriate. Speech within normal limits. Affect constricted, mood anxious. Thoughts linear, logical, no signs of hallucinations or delusions. Client Response/Progress/Benefit: []Client engaged in session AEB listening attentively to others, taking notes, and participating in activity. Client remained attentive during discussion about the 4 A's of managing stress and discussed connecting with the various benefits of each. Client was interactive during group activity and shared she had to use opposite action to overcome anxiety during the activity. Client reflected that she wants to shut down and give up on tasks when anxious. Client reports wanting to work on avoiding unnecessary stressors which will reduce client?s overall stress. Appeared to benefit from learning different techniques to better manage stress. Client will continue IOP to promote use of healthy coping skills, improve emotional regulation, and maintain progress with avoiding unhealthy coping skills. Narrative Note: []
--- NOTE | 2020-09-09 09:00 | BH.SGPN.GN ---
Behaviors/Verbalizations/Mental Status: [] Eye contact is good. Motor activity is appropriate. Appearance is casual. Speech is Appropriate. Mood is depressed. Affect is flat. Thoughts are linear and logical. No evidence of psychosis. Reviewed daily check in sheet and patient reports 2/5 for suicidal thoughts and 0/5 for intent. This is baseline. Client Response/Progress/Benefit: [] Patient participated when prompted. Attentive. Shared that she returned to work since starting FMLA in July for mental health issues. She returned one day and had a family emergency the next. While she reports that work was not great she denied any overwhelming distress. Utilizing skills. Mental health wins was returning to work and managing family emergency. Progress noted per pt report. Benefited from group support and encouragement. Emotion for today is disconnected. Will continue in IOP to maintain gains and transition back to work full-time. Narrative Note: []
--- NOTE | 2020-09-09 10:05 | BH.SGPN.GN ---
Behaviors/Verbalizations/Mental Status: []Eye contact is fair. Motor activity is appropriate. Appearance is casual. Speech is Appropriate. Mood is dysthymic. Affect is congruent. Thoughts are linear and logical. No evidence of psychosis. Client Response/Progress/Benefit: []Pt was an engaged participant in group discussions. Attentive during psycho-education on 4 types of conflict styles (Competing, Collaborating, Avoiding, and Accommodating). Worked with group to define conflict and identify how conflict is helpful; (allows us to grow, helps us stand up for ourselves, empowers us, helps clarify, and helps us gain clarification). With peers identified what prevents them from addressing or managing conflict which included: emotions, past experiences, fear, upbringing, what ifs, and worried how other person will react. Pt believes her conflict style is avoiding and competing the drawbacks being needs not often met and hurting others. Benefited from group due to increase insight and awareness of conflict, conflict styles, and obstacles to managing conflict. Pt to continue IOP to continue use of healthy coping, challenge negative thoughts and prevent decompensation. Narrative Note: []
--- NOTE | 2020-09-09 11:08 | BH.SGPN.GN ---
Behaviors/Verbalizations/Mental Status: []Client alert and oriented, neatly dressed and groomed. Eye contact good. Motor activity restless. Speech within normal limits. Affect constricted, mood panicked which subsided by the end of session. Thoughts linear, logical, no signs of hallucinations or delusions. Client Response/Progress/Benefit: []Client engaged in session AEB contributing to discussion and engaging in activity. Client did well to review current conflict style and its impact on mental health. Attentive and taking notes during discussion on strategies for more effectively managing conflict in own life. Client identified wanting to work on addressing conflict rather than avoiding conflict. Client plans to do this by expressing her feelings with words and not actions. Client shared she can become passive-aggressive when she is upset which causes more problems. Appeared to benefit from gaining strategies to help client better manage conflict. Will continue IOP tx to promote use of healthy emotional regulation skills, reduce negative thinking, and help client transition to work. Narrative Note: []
--- NOTE | 2020-09-09 15:02 | BH.MDN ---
Multi-Disciplinary Note - Note 30-min Individual Time Started:: 12:10 Date: 09/09/20 Purpose of session/treatment goals addressed:: To process client's experience returning to work and to review healthy coping skills to promote emotional regulation. Eye Contact:: Good Motor Activity:: Appropriate Appearance:: Casual Speech:: Appropriate Mood:: Anxious Affect:: Congruent Thoughts:: Linear, Logical, No evidence of hallucinations/delusions noted Staff Interventions:: Therapist used active listening and gentle thought challenging while exploring client's current stressors. Therapist used strengths perspective and helped client reflect on application of coping skills and wins. Therapist reviewed thought challenging techniques client can use at work. Client Response:: Client responded well to session, open to meeting with therapist. Client went back to work this week, but only went one day instead of two due to a family medical issue. Client stated work was work and not much has changed as client still feels like some of her co-workers are toxic. Client demonstrated progress and did not become emotionally reactive at work. Client used self-talk to manage anger and anxiety. Client stated she kept reminding herself this will pass which also helped client during IOP today. Client experienced symptoms of a panic attack during group today and rather than leave and avoid, she stayed and used calming skills. Client reports she is proud of herself for working through the panic. Discussed other strategies client can use at work to help with triggers such as people whispering and feeling left out. Client plans to listen to music at work and have a quote nearby that she can read. Client will also work on self-care tonight and talk with her roommate about a family session. Risks/Concerns:: Client reports that her suicidal ideations have decreased and they are much more passive now. Client denies any active SI, plan, or intent as of 09/09/20. Client denies any self-harm over the past three weeks. Continues to follow her safety plan at home. Progress Toward Goals/Plan:: Client continues to make progress towards her tx goals AEB client's ability to return to work one day this week and manage her emotions in healthy ways. Client also reports reduced SI and she has been using healthy coping skills on a more consistent basis. Continues to endorse a depressed mood, emotional reactivity, negative thoughts, and panic attacks. Client is working on transitioning back to work part-time and then full-time, so she can continue to benefit from IOP level of care to increase emotional regulation skills. Time Stopped:: 12:40
--- NOTE | 2020-09-10 09:05 | BH.SGPN.GN ---
Behaviors/Verbalizations/Mental Status: [] Eye contact is good. Motor activity is appropriate. Appearance is casual. Speech is Appropriate. Mood is anxious. Affect is congruent. Thoughts are linear and logical. No evidence of psychosis. Reviewed daily check in sheet and no reports of suicidal ideations or intent. Client Response/Progress/Benefit: [] Pt participated at times during group discussion. Attentive. Emotion for today is anxious. Mental health win was making it through a panic attack yesterday. Shared that ruminates and gets upset regarding her panic attacks and tries to find out why or what exactly triggered the attack. Group empathized and provided feedback on working through emotions even w/o focusing on cause. Regression reported per pt. Anxious about going back to work again next week. Group provided a great deal of support, encouragement, and reframing for patient which was beneficial. Will continue in IOP to maintain safety, improve coping strategies, and transition back to full-time work. Narrative Note: []
--- NOTE | 2020-09-10 10:15 | BH.SGPN.GN ---
Behaviors/Verbalizations/Mental Status: []Client alert and oriented, casually dressed and groomed. Eye contact good. Motor activity appropriate. Speech within normal limits. Affect constricted, mood euthymic and anxious. Thoughts linear, logical, no signs of hallucinations or delusions. Client Response/Progress/Benefit: []Client was an engaged participant AEB client listening attentively to others. Client quiet, but appeared to be taking notes and shared she connected with the chapters of life. The group worked together to identify barriers that keep one from choosing a new and healthier path to mental wellness. Attentive during psychoeducation on the chapters of life. Benefited from increased awareness and education on barriers to choosing new wellness paths and chapters of life. Client identified being in chapter 2-3 as client has gained awareness of what keeps her stuck, but she is still working on challenging negative thoughts and consistently using healthy coping skills. Will continue IOP tx to improve daily functioning, reinforce healthy coping skills, and combat distortions. Narrative Note: []
--- NOTE | 2020-09-10 11:15 | BH.SGPN.GN ---
Behaviors/Verbalizations/Mental Status: []Client alert and oriented, casual dress, hygiene appropriate. Eye contact fair. Motor activity appropriate, at times. speech and tone WNL. Affect congruent. mood anxious. Thoughts linear, logical, no signs of hallucinations or delusions. Client Response/Progress/Benefit: []Client engaged in session AEB listening to discussion and provided input at times. Client attentive during psychoeducation about importance of maintenance plans. Client did well to work with the group to brainstorm strategies to promote making progress towards their desired chapter. Pt completed provided maintenance plan worksheet in small group. Pt identified personal triggers as: overthinking, crowds, and past trauma memories. Identified warning signs as: anger, isolate from others, blaming others, increased shopping. Pt identified healthy coping skills as: talking about thoughts to someone, opposite action, and engage in an activity. Seemed to benefit from increasing awareness of triggers, warning signs and coping skills. Will continue IOP tx to improve daily functioning, continue use of healthy coping, and prevent decompensation. Narrative Note: []
--- NOTE | 2020-09-11 09:05 | BH.SGPN.GN ---
Behaviors/Verbalizations/Mental Status: [] Eye contact is good. Motor activity is appropriate. Appearance is casual. Speech is Appropriate. Mood is anxious. Affect is congruent. Thoughts are linear and logical. No evidence of psychosis. Reviewed daily check in sheet and no reports of suicidal ideations or intent. Client Response/Progress/Benefit: [] Pt participated when prompted. Attentive. Emotion for today is anxious. Shared that she attended her 2nd EMDR session last evening and that it went well. She discussed how it does bring up negative thoughts and memories however she has been able to manage these without decompensation. She is anxious about her 2nd week at work next week. She reports that while stressed, anxious, and depressed she has not utilized unhealthy coping skills like cutting. Also urge to self-harm is less than it was several weeks ago. Still struggling with anxiety and depression however feels more confident in managing her thoughts, feelings, and stressors. Progress noted per pt report. Benefited from group support, encouragement, and feedback. Will continue in IOP to transition back to work and prevent decompensation. Narrative Note: []
--- NOTE | 2020-09-11 10:10 | BH.SGPN.GN ---
Behaviors/Verbalizations/Mental Status: []Client alert and oriented, casually dressed and groomed. Eye contact fair. Motor activity appropriate. Speech within normal limits. Affect constricted, mood anxious. Thoughts linear, logical, no signs of hallucinations or delusions. Client Response/Progress/Benefit: []Client engaged participant AEB client providing contributions during group discussion and appeared to listen attentively to peers. Client connected with the topic of relationships. Client helped group discuss the benefits of relationships as well as the different types of relationships one can have. Group identified the risk factors for unhealthy relationships which included: poor self-esteem, trauma, lonely, and lying. Client stated fighting all the time is a warning sign that the relationship might not be healthy. Listened to group develop a list of the consequences that unhealthy relationships have on mental health. Appeared to benefit from increasing awareness of the impact unhealthy relationships can have on mental health. Pt to continue IOP to increase healthy coping, improve daily functioning and prevent decompensation. Narrative Note: []
--- NOTE | 2020-09-11 11:10 | BH.SGPN.GN ---
Behaviors/Verbalizations/Mental Status: []Client alert and oriented, casually dressed and groomed. Eye contact good. Motor activity appropriate. Speech within normal limits. Affect constricted, mood euthymic. Thoughts linear, logical, no signs of hallucinations or delusions. Client Response/Progress/Benefit: []Client responded well to session, engaged and taking notes. Attentive during discussion of what traits of healthy relationships. Client reflected on one relationship in her life and weighed the positives and negatives of that relationship to see how balanced it was. Client stated her relationship with her roommate is ?balanced? but client would like to further improve communication with her. Client stated she is working on not shutting down and wants to also be a more active listener. Appeared to benefit from brainstorming strategies to build healthier relationships. Will continue IOP tx to increase emotional regulation skills, reduce negative thinking, and promote transition back to work. Narrative Note: []
--- NOTE | 2020-09-16 09:05 | BH.SGPN.GN ---
Behaviors/Verbalizations/Mental Status: [] Eye contact is good. Motor activity is appropriate. Appearance is casual. Speech is Appropriate. Mood is anxious. Affect is congruent. Thoughts are linear and logical. No evidence of psychosis. Reviewed daily check in sheet and pt reports 2/5 for suicidal ideations and 0/5 for intent. Client Response/Progress/Benefit: [] Pt participated at times during the group discussion. Attentive. Pt shared that she was isolating over the weekend which she understands is not beneficial. Mental health wins include that she did utilize skills to help manage mood and prevent decompensation. She went to work the previous 2 days and reports that I'm dealing with people OK. No significant distress noted at work noting that she is keeping things very basic and superficial with co-workers. Progress noted per pt report. Benefited from group support, encouragement, and feedback. Will continue in IOP to maintain gains and transition back to full-time work. Narrative Note: []
--- NOTE | 2020-09-16 11:15 | BH.SGPN.GN ---
Behaviors/Verbalizations/Mental Status: []Client alert and oriented, casually dressed and groomed. Eye contact good. Motor activity appropriate. Speech within normal limits. Affect congruent. Mood anxious. Thoughts linear, logical, no signs of hallucinations or delusions. Client Response/Progress/Benefit: []Client engaged during activity and provided ideas on how to cope with internal barriers that keep clients stuck from moving towards goals. Client able to identify barriers to desired reality. Client reported she wants to work on overcoming barrier of catastrophic thinking. Client reported she will start to overcome this barrier by looking for evidence against the catastrophic thought, asking self if the thought is rational and think through possibilities before reacting. Reported this could help her recognize how her thoughts are being irrational. Benefited from group by identifying obstacles and solutions to desired reality. Will continue IOP tx to prevent decompensation, maintain gains, and continue use of healthy coping skills.
--- NOTE | 2020-09-16 11:38 | PCM.BH.PN ---
Progress Note Progress Note: History of Present Illness/Interim History: [] The patient is a 59-year-old female who is seen in follow-up at the [facility] IOP program. I last saw the patient 2 weeks ago. The patient states that she still has some anxiety but feels that she is doing much better. She worked 1 day last week and was able to function well at work. She plans to work a reduced schedule for another week or 2 and then go back to full-time work. She states that her mood has been better but she did get a little down over the weekend for unknown reasons. She still was able to encourage her self to go for a walk and to mow her grass. She is sleeping about 6 hours a week now and her panic attacks have gone down to about 2 times a week. Sleep is still not what she would like it to be and she does not feel rested the next day. She does snore and her roommate has complained about this. She has never had a sleep study. She has not done any self-harm or cutting in the past 3 weeks. She has had occasional urges but is able to resist them using some of the skill she is learning in the IOP program. She denies any drug use. She still has occasional fleeting, passive suicidal ideation but not every day. She denies active suicidal ideation, plan for suicide, homicidal ideation, hallucinations or delusions. Current Psychiatric Medications: [] Abilify 5 mg p.o. daily; BuSpar 15 mg p.o. twice daily; Zoloft 200 mg p.o. daily; trazodone 200 mg p.o. nightly; Vistaril 50 mg about 3 times a day. Mental Status Examination: [] The patient is a 59-year-old female who is seen wearing a mask due to the pandemic and is casually dressed and groomed with good hygiene. There is no psychomotor agitation or retardation. Eye contact is good and speech is normal rate and rhythm and fluent with no pressure. Mood is mildly depressed. Affect is full and normal. Thought process is organized and goal-directed. Thought content: There is still evidence of fleeting, passive suicidal ideation and several times a week but not on a daily basis. There is no evidence of active suicidal ideation, plan for suicide, homicidal ideation, passive thoughts of , hallucinations or delusions. Judgment is intact. Insight is limited but improving. Impulsivity is moderate to high. Diagnoses: [] 1. Borderline personality disorder 2. Major depressive disorder, recurrent, severe without psychosis 3. PTSD 4. Alcohol use disorder (sober for 2 years) 5. History of amphetamine, marijuana and cocaine use in the past 6. Primary support issues Plan: [] The patient will continue the IOP program at [facility] as the structure, support, education, and group therapy will hopefully prevent worsening of the patient's symptoms which might require hospitalization. She felt safe during the interview and if it anytime she does not feel safe she will let us know or go to the emergency room. No medication changes were made today. The patient will continue on the same medication regimen. The patient is encouraged to remain sober from all drug and substance use. Patient is encouraged to schedule a sleep study soon through her primary care doctor for her snoring and her not feeling rested. In addition the patient may take her third Vistaril right before bedtime in order to help with sleep. Patient will follow up with her outpatient providers and I will see the patient while in the IOP program.
--- NOTE | 2020-09-16 11:46 | PCM.BH.PN_ITS ---
Progress Note Progress Note: History of Present Illness/Interim History: [] Patient is a 22-year-old female who is seen in follow-up at the [facility] behavioral health IOP program. I last saw the patient 1 week ago and the patient requested to see me today. The patient says that she feels better now and is only having occasional mild nausea off and on in the morning which resolves in a short time. She denies any alcohol use since prior to last appointment. Her mood is much less depressed and she feels less tired during the day. She got the cast off of her left knee and has been able to be a little more active and she feels this is helping her also. She has been walking and riding an exercise bike lately. She continues doing the rehab for her left knee. She still has occasional fleeting, passive suicidal thoughts at times but denies any active suicidal ideation or any plan for suicide. She has minimal thoughts of self-harm now and has been able to resist them. She does admit now that she has cut herself off and on for 3 years and she last cut herself 1 month ago. She has no scars from the cutting. She plans to return to school in early November after the summer break ends. Current Psychiatric Medications: [] Zoloft 50 mg p.o. daily; vitamin D2 50,000 IU p.o. weekly Mental Status Examination: [] Patient is a 22-year-old female who appears normal for stated age and is seen wearing a mask due to the pandemic. She is casually dressed and groomed with good hygiene. Eye contact is good and speech is normal rate and rhythm and fluent with no pressure. Mood is mildly depressed. Affect is constricted. Thought process is goal-directed and organized. Thought content: There is evidence of fleeting passive suicidal ideation only at times. There is no evidence of urges to self-harm, active suicidal ideation, plan for suicide, homicidal ideation, hallucinations or delusions. Insight is limited but improving. Judgment is intact. Impulsivity is moderate. Diagnoses: [] 1. Major depressive disorder, recurrent, severe without psychosis 2. Social anxiety disorder 3. Generalized anxiety disorder 4. Primary support and school issues Plan: [] The patient will continue the IOP program at [facility] as the structure, support, education and group therapy will hopefully prevent worsening of the patient's symptoms. She felt safe during the interview and if it anytime she does not feel safe she agrees to let us know or go to the emergency room. The risks, options, possible complications and side effects of the medications were again discussed with the patient and she understands and accepts these. No medication changes were made today. The patient will continue to follow-up with her outpatient psychiatric and medical providers.
--- NOTE | 2020-09-16 14:03 | BH.MDN_ITS ---
Multi-Disciplinary Note - Note 30-min Individual Time Started:: 09:25 Date: 09/16/20 Purpose of session/treatment goals addressed:: The purpose of this session was to engage client's friend in treatment by providing psychoeducation on conflict resolution and communication techniques. Eye Contact:: Good Motor Activity:: Appropriate Appearance:: Neat Speech:: Appropriate Mood:: Euthymic, Anxious Affect:: Congruent Thoughts:: Linear, Logical, No evidence of hallucinations/delusions noted Staff Interventions:: Therapist used open-ended questions and active listening to gather information on expectations for the session. Therapist used strengths perspective to empower client and identify strengths that can support client?s mental health. Therapist helped the couple explore what is current barriers to communication and conflict resolution. Therapist reviewed effective communication strategies, ?fair fighting? rules, and emotional regulation skills. Client Response:: Client and roommate, Ada, responded well to session. Ada shared that she has noticed progress in client's reduced anger and client being more active at home. Ada also mentioned that she feels more relaxed around client at home and work now that client is regulating her emotions better. Client and Ada agreed that discussing communication and conflict resolution strategies would best help client's mental health. Discussed current barriers to communicating which included stonewalling and getting defensive for client, and being short and not clarifying for Ada. Discussed how these barriers impact their relationship and client's mental health. Client has been working on not shutting down and recognizes that being defensive is a defense mechanism. Client opened up about her fear of others leaving her, so client sometimes pushes people away first. Client has more awareness of this unhealthy coping skill and is improving. Also discussed fair fighting rules and each picked something they would like to work on to better manage conflict. Client would like to continue working on not shutting down and challenging distortions. Ada plans to be more direct with her need for breaks and take turns speaking with client. Client verbalized several distortions during session and did well to challenge these with assistance. Discussed how client can challenge distortions at work and what Ada can do to help with this. Risks/Concerns:: Client denies any suicidal ideation, plan, or intent as of 09/16/20. Client reports superficial cutting earlier this week, but client was able to stop herself quickly. Client denies needing any stitches and the olson are barely visible. Denies cutting since. Progress Toward Goals/Plan:: Client continues to make progress towards her tx goals AEB client?s self-report of consistently using healthy coping skills and report of rare SI. Client has returned to work two days a week which has been stressful for client, and she had a recent setback by cutting to cope. However, client has been responding better to stress and is able to manage her emotions in healthier ways. Client?s roommate also notes progress in reduced anger and better emotional regulation. Continues to endorse a depressed mood, emotional reactivity, negative thoughts, and panic attacks that are decreasing. Client is working on transitioning back to work full-time and can benefit from one more we josi of IOP tx. Time Stopped:: 10:00
--- NOTE | 2020-09-17 09:00 | BH.SGPN.GN ---
Behaviors/Verbalizations/Mental Status: [] Eye contact is good. Motor activity is appropriate. Appearance is neat. Speech is Appropriate. Mood is anxious. Affect is congruent. Thoughts are linear and logical. No evidence of psychosis. Reviewed daily check in sheet and no reports of suicidal ideations or intent. Client Response/Progress/Benefit: [] Pt participated at times during group discussion on the role of enchantment in mental health wellness. Emotion for today is tired. States that she has not been sleeping well. Plans on calling her PCP to discuss further and possibily getting a sleep study. Peers discussed their experiences and benefits related to obtaining a sleep study which was helpful. Pt states actually nothing is too overwhelming. No significant distress and is managing her emotions well. She states that she wants to isolate less and step outside her comfort zone (home). States I need to get out and do more with my life. Hopeful and motivated. Progress noted per pt report. Benefited from group support, encouragement, and feedback. Will continue in IOP to maintain gains and transition back to work. Narrative Note: []
--- NOTE | 2020-09-17 10:15 | BH.SGPN.GN ---
Behaviors/Verbalizations/Mental Status: []Client alert and oriented, casual dress, hygiene tended to. Eye contact fair. Motor activity appropriate. Speech within normal limits. Affect congruent. Mood anxious. Thoughts linear, logical, no signs of hallucinations or delusions. Client Response/Progress/Benefit: []Pt mostly passive participant AEB providing limited input during group discussions however appeared to listened attentively to others. Pt listened to group identify benefits of emotional health which included: improved relationships, increased patience, improved regulation, and improved communication. Pt attentively listened to discussion about barriers of improving emotional wellness. Seemed to benefit from increased awareness of importance of improving emotional wellness. Pt to continue IOP to continue use of healthy coping, improve confidence and prevent decompensation. Narrative Note: []
--- NOTE | 2020-09-17 11:16 | BH.SGPN.GN ---
Behaviors/Verbalizations/Mental Status: []Client alert and oriented, casually dressed and groomed. Eye contact good. Motor activity appropriate. Speech within normal limits. Affect congruent, mood anxious and euthymic. Thoughts linear, logical, no signs of hallucinations or delusions. Client Response/Progress/Benefit: []Client responded well to session, attentive and taking notes throughout discussion. Client paying attention, though mostly passive, the discussion reviewing the ?10 [place] TIPS for Emotional Wellness?. Client worked within a smaller group to identify how each tip could aid in supporting personal emotional wellness and come up with ways to practice each of the tips reviewed. Client shared connecting with the emotional wellness trait of creating and working towards realistic goals. Shared a personal example of goals she has been working on. Client noted she would like to work the emotion wellness trait ?Choose to be a good friend to yourself? in order to continue to improve her self-worth, reduce negative self-talk, and further improve mood stability. Expressed she can practice doing so by continuing to work on using more positive self-talk. Client to continue IOP tx to prevent decompensation, improve mood stability, and promote application of healthy coping skills. Narrative Note: []
--- NOTE | 2020-09-18 09:04 | BH.SGPN.GN ---
Behaviors/Verbalizations/Mental Status: []Eye contact is good. Motor activity is appropriate. Appearance is neat and casual. Speech is Appropriate. Mood is euthymic. Affect is congruent. Thoughts are linear and logical. No evidence of psychosis. Reviewed daily check in sheet and no reports of suicidal ideation or intent as of this date. Client Response/Progress/Benefit: []Client was an active participant in group discussion on gratitude and self-care in continued progress. Identified current emotion as ?satisfied? and attributed this to continuing to make strides to step outside her comfort zone and do things out of the house. Reflected that she went for ice cream yesterday. Discussed current stressor noted as ?snapping? at her roommate when asked about returning to work. Provided insight on underlying emotions contributing to this and did well to thought challenge, recognizing that one setback does not mean she is starting back over. Receptive of supportive feedback and discussed seeing progress in overall mood stability and reduction of self-harming thoughts. Benefited from group support, encouragement, and feedback. Will continue in IOP to continue to improve use of healthy skills, further promote healthy change behaviors, and improve mood stability. Narrative Note: []
--- NOTE | 2020-09-18 10:05 | BH.SGPN.GN ---
Addendum entered and electronically signed by Iliana Parry 09/29/20 13:33: error in date. correct date is 09/25/20 Original Note: Behaviors/Verbalizations/Mental Status: []Eye contact is good. Alert and oriented. Motor activity is appropriate. Appearance is casual. grooming is appropriate. Speech is Appropriate. Mood is euthymic. Affect is congruent. Thoughts are linear and logical. No evidence of psychosis or hallucinations. Client Response/Progress/Benefit: []Client responded well to session, engaged, and participated in discussion and group activity. Client connected with topic of managing emotions. Remained engaged throughout discussion on common barriers to effective emotion regulation which included: shutting down, making assumptions, lashing out, sarcasm, and giving ?the silent treatment?. Identified personal barriers and shared an example of making assumptions and over-reacting at work. Engaged in challenge activity highlighting the connection between communication and effective emotion regulation. Client stated she has been working on regulating her emotions better by using calming skills, STOP, and self-talk. Client appeared to benefit from gaining increased awareness on common emotion regulation barriers and impacts of ineffective emotion regulation on mental health and personal relationships. Will continue IOP to promote continued use of healthy coping skills, promote gains, and further increase emotional regulation at work. Narrative Note: []
--- NOTE | 2020-09-18 10:10 | BH.SGPN.GN ---
Behaviors/Verbalizations/Mental Status: [] Eye contact is good. Motor activity is appropriate. Appearance is casual. Speech is Appropriate. Mood is anxious. Affect is congruent. Thoughts are linear and logical. No evidence of psychosis Client Response/Progress/Benefit: [] Pt was an active participant in group discussion. Attentive during psychoeducation. Along with peers pt was able to provide insight on the importance of goal-setting. Group identified that goals are important b/c; they keep us looking forward, give one purpose, can provide a sense of accomplishment, they can increase confidence, and the provide one with personal growth. Group also worked together to identify barriers to goal-setting which included; lack of motivation, Fear of failure, fear of success, fear of judgement, rigid thinking, mental health struggles, having too high expectations, having no direction, and toxic people. Benefited from increased awareness of benefits and barriers to goal-setting. Pt will continue in IOP to maintain safety, transition back to full-time work, and maintain gains. Narrative Note: []
--- NOTE | 2020-09-18 11:15 | BH.SGPN.GN ---
Behaviors/Verbalizations/Mental Status: []Eye contact is good. Motor activity is appropriate. Appearance is casual. Speech is Appropriate. Mood is anxious. Affect is constricted. Thoughts are linear and logical. No evidence of psychosis. Client Response/Progress/Benefit: []Pt was an active participant in group discussions and activities. Along with group members was able to identify barriers during group beach ball activity and strategies they utilized to overcome these barriers (communicating, encouraging others). Able to identify a SMART goal for the next week which was to leave her house at least one day on the weekend. Reported benefits of this goal would be decrease isolation and increase confidence. Pt was able to identify barriers and obstacles to this goals and strategies to overcome these barriers. Benefited from group by being able to utilize SMART educate to create a goal.
--- NOTE | 2020-09-23 09:05 | BH.SGPN.GN ---
Behaviors/Verbalizations/Mental Status: []Client alert and oriented, casually dressed and groomed. Eye contact good. Motor activity appropriate. Speech within normal limits. Affect constricted, mood anxious. Thoughts linear, logical, no signs of hallucinations or delusions. Reviewed client?s symptom tracker, no risk for suicidal ideation, plan, or intent as of 09/23/20 Client Response/Progress/Benefit: []Client responded well to session, engaged and participating. Client reports feeling nervous and shaky this morning due to a little setback. Client stated she became overwhelmed at work earlier this week and cut herself. Client shared I started and then I stopped myself, but I feel embarrassed and stupid. Client receptive to feedback from peers to normalize setbacks and help client challenge her thinking. Client able to acknowledge wins within her setback such as not letting this ruin her day and using healthy coping skills after. Client also highlighted that she has not been suicidal in weeks which is significant. Client appeared to benefit from reflecting on progress and challenging negative thinking in the moment. Will continue IOP tx to promote gains and further improve work-related functioning. Narrative Note: []
--- NOTE | 2020-09-23 10:16 | BH.SGPN.GN ---
Behaviors/Verbalizations/Mental Status: [] Eye contact is good. Motor activity is appropriate. Appearance is appropriate, casual. Speech is Appropriate. Mood is dysthymic and anxious. Affect is congruent. Thoughts are linear and logical. No evidence of psychosis. Client Response/Progress/Benefit: []Client was an active participant AEB attentiveness, taking noted, and contributing at times throughout. Client engaged in group discussion reviewing the importance of addressing and learning to cope with anxiety. Attentive during psychoeducation on different types of anxiety disorders. Worked with group to describe anxiety as well as the impact of anxiety unmanaged anxiety on daily functioning. Client shared that ?Anxiety stops me from moving forward or doing things. I might not share because I am distracted by thoughts?. Worked with group to identify common physical symptoms of anxiety and noted personal anxiety symptoms to include: tingling, crying, headaches, restlessness, and shaking hands and legs. Worked with group to identify safety behaviors which included canceling plans/appts, isolation, and avoidance. Benefited from increased insight and awareness from group discussions. Will continue in IOP to maintain gains, prevent decompensation, and improve consistent skill application. Narrative Note: []
--- NOTE | 2020-09-23 11:16 | BH.SGPN.GN ---
Behaviors/Verbalizations/Mental Status: []Client alert and oriented, casually dressed and groomed. Eye contact good. Motor activity appropriate. Speech within normal limits. Affect congruent, mood anxious. Thoughts linear, logical, no signs of hallucinations or delusions. Client Response/Progress/Benefit: []Client was an active participant in group discussion and providing good insight to peers. Reviewed safety behaviors she engages in that reinforce anxiety. Attentive during psychoeducation on mindfulness coping skills and their impact on mental health wellness. The group worked together to brainstorm anxiety reduction strategies. Client shared she is willing to practice the following coping skills for anxiety: breathing techniques, drawing, and journaling. Client seemed to benefit from increased repertoire of anxiety reduction skills. Client will continue IOP tx to continue use of healthy coping skills, continue to challenge negative thoughts and prevent decompensation.
--- NOTE | 2020-09-25 09:01 | BH.SGPN.GN ---
Behaviors/Verbalizations/Mental Status: []Eye contact is good. Motor activity is appropriate. Appearance is casual. Speech is Appropriate. Mood is euthymic, anxious. Affect is congruent. Thoughts are linear and logical. No evidence of psychosis. Reviewed daily check in sheet and no reports of suicidal ideations or intent. Client Response/Progress/Benefit: []Pt was active participant in group AEB providing input and supportive feedback throughout. Client did well to more actively engage in discussion which is progress as client often shuts down when anxious. Reports her emotion for the day as ?relaxed?, Noting she has been making progress in spending time completing small daily goals. Described several small goals she accomplished yesterday as well as time spent on relaxation. Shared current stressor as the emotional toll her trauma therapy is having on her. Expressed that she is glad she is working on processing her trauma however and has been taking steps to practice self-care after each session. Progress noted per pt report as well as reduced symptoms per daily sx tracker. Benefited from group support, encouragement, and feedback. Will continue in IOP to maintain gains, further promote heathy change behaviors, and stabilize mood. Narrative Note: []
--- NOTE | 2020-09-25 11:10 | BH.SGPN.GN ---
Behaviors/Verbalizations/Mental Status: []Client alert and oriented, casually dressed and groomed. Eye contact good. Motor activity appropriate. Speech within normal limits. Affect congruent, mood anxious. Thoughts linear, logical, no signs of hallucinations or delusions. Client Response/Progress/Benefit: []Client engaged in session AEB client listening attentively to peers and providing input. Attentive during psychoeducation on 4 zones of regulation. Client able to identify feelings and behaviors for each zone. Client identified coping skills one can use to support self in each zone which included: opposite action, self-talk, goal setting, deep breathing, and hot bath. Client stated belief that she is most often in the yellow zone because she angers quickly. Pt states when in yellow zone she avoids and isolates. Benefited from increased education on zones of regulation or stages of alertness for emotions and healthy coping skills to use for each zone. Will continue IOP tx to maintain gains, reinforce healthy coping and prevent decompensation.
== END 2020-09-30 23:59 ==
LOC: BHIOP 09:00
PROVIDERS: PCP Nurse Practitioner Family; Referring Provider Psychiatry & Neurology Psychiatry; Visit Provider Psychiatry & Neurology Psychiatry
DX: F33.2 Major depressive disorder, recurrent severe without psychotic features (principal); F41.1 Generalized anxiety disorder; Z79.899 Other long term (current) drug therapy
CPT/HCPCS: S9480; 90832; 90847; 90853

== ENCOUNTER 2020-10-01 08:29 | Outpatient (RCR) | payer OTHER, SELFPAY ==
[2020-10-01 00:27] VITALS: BP 136/84; PULSE 82
--- NOTE | 2020-10-01 09:05 | BH.SGPN.GN ---
Behaviors/Verbalizations/Mental Status: [] Eye contact is good. Motor activity is appropriate. Appearance is casual. Speech is Appropriate. Mood is depressed. Affect is flat. Thoughts are linear and logical. No evidence of psychosis. Reviewed daily check in sheet and pt reports 1/5 for suicidal thoughts and 0/5 for intent. Client Response/Progress/Benefit: [] Pt was an active participant in group discussion. Attentive. Daily symptom tracker notes 4/5 for anger and 3/5 for anxiety. States I have two more days to go here. Shared that she will be discharging tomorrow. Pt states I'm doing a lot better however reports that she superfically cut due to stress. Insight about what I should have done. Not ruminating on this event and appears to be future-focused. Returning to work has been a significant stressor mainly due to her co-workers. Mind-reading and other cognitive distortions were pointed out. I'm pushing through and trying to think of the positivies. Provided positive feedback to peer. Regression noted due to work stressors per pt report. Benefited from group support, encouragement, and feedback. Will continue in IOP to maintain gains. Narrative Note: []
--- NOTE | 2020-10-01 10:05 | BH.SGPN.GN ---
Behaviors/Verbalizations/Mental Status: []Client alert and oriented, neatly dressed and groomed. Eye contact good. Motor activity appropriate. Speech within normal limits. Affect constricted, mood anxious. Thoughts linear, logical, no signs of hallucinations or delusions. Client Response/Progress/Benefit: []Client engaged in session AEB taking notes and listening attentively to peers. Client shared connecting with the importance of setting boundaries, noting that lack of self-esteem and self-love can keep a person from setting healthy boundaries. Client assisted group with identifying benefits of setting boundaries such as reduced stress and improved relationships. Client shared it is important to set boundaries with toxic people. Listened during psychoeducation on different types of boundaries. Client seemed to benefit from increased awareness of how boundaries impact mental health and the different types of boundaries there are. Progress noted in client?s report of using healthy coping skills more consistently, but continues to struggle with impulse control at times. Will continue IOP tx to promote gains and reinforce healthy coping skills. Narrative Note: []
--- NOTE | 2020-10-01 11:10 | BH.SGPN.GN ---
Behaviors/Verbalizations/Mental Status: [] Client alert and oriented, casually dressed and appropriately groomed. Eye contact fair. Motor activity appropriate. Speech within normal limits. Affect constricted, mood anxious. Thoughts linear and intact. no signs of delusions or hallucinations. Client Response/Progress/Benefit: []Client responded well to session AEB listening attentively to peers and providing input and examples throughout. Client engaged in the boundary self-assessment activity. Client stated she struggles with trusting others which results in setting more rigid boundaries. Client recognizes this has made it hard for her to develop friendships. Client stated fear of being hurt is a barrier to letting others in. Client was attentive and contributed during psychoeducation on the different boundary styles. Participated in group discussion brainstorming various strategies for improving healthy personal boundaries. Seemed to benefit from increased awareness of personal boundary style and impact this has on mental health. Will continue IOP tx to continue use of healthy coping, challenge negative thoughts and prevent decompensation.
--- NOTE | 2020-10-02 08:15 | BH.AFTERPLAN ---
Aftercare Plan - Demographics Treatment End Date:: 10/02/20 Psychiatrist:: Mckenzie Pinto Psychiatrist Office #:: [phone] [facility] Therapist:: Iliana Parry Therapist Phone #:: [phone] - Plan Details Progress/Aftercare Plan Details:: Crystal has made significant strides since starting IOP as shown by her improved mood and functioning, ability to challenge distortions, and overall more positive outlook. When Crystal started IOP, she was severely depressed to the point that she was isolating, not taking care of herself, and had suicidal thoughts daily. Crystal had low energy, was easily irritable with supports, and had negative self-talk that reinforced depressive maintenance cycles. Now, Crystal is actively using healthy coping skills, using opposite action, challenging negative thoughts, and communicating better with supports. Crystal self-reports progress in the following areas: feeling less depressed, more control of her emotions, being more active, and less suicidal thoughts. Crystal was active in both group and individual therapy sessions. Crystal contributed to group discussions, offered emotional support to peers, and consistently followed through with her goals. In individual sessions, Crystal was receptive to feedback, consistent with homework, and willing to push herself. Crystal?s DSM-5 scores decreased overall by 39%. Depression decreased by 43%, anger decreased by 67%, anxiety decreased by 39%, and thoughts of actually hurting herself decreased by 100%. Crystal will follow up with [facility] for outpatient counseling and psychiatry. Crystal will also participate in IOP aftercare. Strategies for Success:: 1. Challenge those negative thoughts and remember you cannot read other people?s minds! DON?T FEED THE CAT!. 2. Remember to STOP (stop, take a breath, observe, and proceed) 3. Check in with yourself and take care of those emotions, don?t wait for them to take over you. 4. Opposite action! Keep it up and remember how you feel after you do something good for you. 5. Positive self-talk and affirmations. 6. When you want to self-harm DDD (delay, distract, decide) Don?t let the emotions control you. 7. Maintenance! Keep up with what has worked. 8. Give yourself credit! You have seriously come so far. 9. Be vulnerable to make new connections. 10. Again, challenge negative thoughts!!! - Appointments Appointments/Referrals to Other Services:: 1. Continue at [facility] for EMDR, individual therapy, and medication management. 2. IOP aftercare starting 10/08/20 from 2-3pm - Medications Home Medications: Home Medications aripiprazole [Abilify] 5 mg PO DAILY 08/12/20 buspirone 15 mg PO BID 08/12/20 hydroxyzine pamoate 50 mg PO 4X/DAY PRN PRN 08/12/20 sertraline 200 mg PO DAILY 08/12/20 trazodone 150 - 200 mg PO QHS 08/12/20
--- NOTE | 2020-10-02 08:33 | BH.DS ---
Discharge Summary - Demographics Date of Admission:: 08/04/20 Discharge Date: 10/02/20 Presenting Problems at Admission:: Client is a 60-year-old female with a history of depression and borderline personality disorder. Client was discharged from [facility] on 08/01/20. Prior to admission to [facility], client reported suicidal ideations with a plan to kill herself on the anniversary of her mother's . Client had taken a knife into her outpatient therapy session with the intent to hurt herself and was admitted later that week. At admission to [facility], client reported history of chronic suicidal ideations and has a history of two previous psychiatric admissions. History of self-harm via cutting. At admission to [facility], client endorsed poor sleep, low appetite, low energy, daily panic attacks, isolative behaviors, anhedonia, and negative thoughts. Client also admitted to affective instability, stress-related paranoia, and poor self-image. Client has a history of substance abuse, but denies any current use. Client's symptoms were significantly impacting her social and occupational functioning. Discharge Diagnoses:: Major depressive disorder, recurrent, severe without psychosis F33.2; borderline personality disorder; PTSD; alcohol use disorder (sober for 2 years); history of amphetamine, marijuana and cocaine use over for many years. Reason for Discharge:: Client has met her tx goals AEB reduced DSM-5 scores and self-report of improved mood and functioning. Client no longer meets criteria for [facility] level of care. - Treatment Progress During Treatment & Response: Client made significant progress in reducing self-harm, suicidal ideations, and overall mental health symptoms. Client was active in both group and individual therapy sessions. Client contributed to group discussions, offered emotional support to peers, and consistently followed through with her goals. In individual sessions, Client was receptive to feedback, consistent with homework, and willing to push herself. Client?s DSM-5 scores decreased overall by 39%. Depression decreased by 43%, anger decreased by 67%, anxiety decreased by 39%, and thoughts of actually hurting herself decreased by 100%. Client will follow up with [facility] for outpatient counseling and psychiatry. Client will also participate in [facility] aftercare. Issues Still to be Addressed:: Client can continue to benefit from outpatient counseling to reinforce healthy coping skills such as emotional regulation, thought challenging, and mindfulness. Client is currently getting EMDR treatment and has been benefitting from this. Client wants to continue to work on reducing self-harm urges and increasing self-esteem. Discharge Recommendations/Instructions:: Client will continuing getting EMDR treatment at [facility] on . Client also sees Keesha for individual counseling and Dr. Bryan for psychiatry. Client will see Keesha next week. Discharge Handout: Complete Discharge Handout with client on aftercare options and continuity of care.
--- NOTE | 2020-10-02 09:05 | BH.SGPN.GN ---
Behaviors/Verbalizations/Mental Status: [] Eye contact is good. Motor activity is appropriate. Appearance is casual. Speech is Appropriate. Mood is euthymic. Affect is full. Thoughts are linear and logical. No evidence of psychosis. Reviewed daily check in sheet and no reports of suicidal ideations or intent. Client Response/Progress/Benefit: [] Pt was an active participant on the role of blame in mental wellness. Emotion for today is zazzed. Shared that today is her last day in [facility]. I've come a long way. No suicidal thoughts for an extended period of time for her. States that IOP helped a lot. Excited and optimistic about the future. Insight that she will have ups and downs. Increased confidence in her ability to manage stress, negative thoughts, and rumination. Shared aftercare plan which is to continue with her MH providers. Shared groups and interventions that have been most helpful to her. Progress noted per pt report. Will be discharged from [facility] today. Narrative Note: []
--- NOTE | 2020-10-02 10:54 | BH.COMM ---
Communication Note - Communication with Client Communication Note: Met with patient to review aftercare plan and progress.
--- NOTE | 2020-10-02 11:10 | BH.SGPN.GN ---
Behaviors/Verbalizations/Mental Status: [] Eye contact is good. Motor activity is appropriate. Appearance is neat and casual. Speech is Appropriate. Mood is euthymic and anxious. Affect is congruent. Thoughts are linear and logical. No evidence of psychosis. Client Response/Progress/Benefit: [] Pt responded well to session as evidenced by contributing during challenge activity, listening to peers, and providing input. Pt stated the problem she wants to work on as negative self-talk. Pt identified skills she can utilize to work on this problem include: opposite action, reframing, challenging her perspective, and positive affirmations. Discussed that working to solve this problem will aid in increasing self-confidence, improve positive attitude, and improve overall ability to cope with challenges in her life. Pt seemed to benefit from identifying strategies to problem solve through a problem currently impacting mental health. Recommended continued outpatient tx on a regular basis as client is discharging from IOP on this date. Narrative Note: []
== END 2020-10-02 13:49 | disposition home or self-care (01) ==
LOC: BHIOP 08:29
PROVIDERS: PCP Nurse Practitioner Family; Referring Provider Psychiatry & Neurology Psychiatry; Visit Provider Psychiatry & Neurology Psychiatry
DX: F33.2 Major depressive disorder, recurrent severe without psychotic features (principal); F60.3 Borderline personality disorder; F43.10 Post-traumatic stress disorder, unspecified; Z72.89 Other problems related to lifestyle
CPT/HCPCS: S9480; 90853

== ENCOUNTER 2020-10-08 14:00 | Outpatient (RCR) | payer OTHER, SELFPAY ==
--- NOTE | 2020-10-08 14:00 | BH.SGPN.GN ---
Behaviors/Verbalizations/Mental Status: []Client alert and oriented, casual dress, hygiene tended to. Eye contact good. Motor activity appropriate. Speech within normal limits. Affect congruent, mood euthymic. Thoughts linear, logical, no signs of hallucinations or delusions. Client Response/Progress/Benefit: []Client responded well to session, receptive to feedback and sharing supportive statements to peers. Client reported work is continuing to be a stressor stating I'm not sure if it's me or them that's make work stressful. Client identified mental health positives as counting to 10 before expressing some thoughts and no self-harm since d/c from IOP. Client participated in the group discussion of maintenance and the benefits of creating a maintenance plan. Client contributed as the group discussed what components make up a maintenance plan. Client created own mental health maintenance plan. Client identified warning signs which included: isolation, increased negative self-talk, when starts thinking she can do it on her own and suicidal thoughts. Client's coping skills included: breathing skills, quiet drive, and medication compliance. Appeared to benefit from creating a maintenance plan to promote gains and prevent setbacks. Will continue aftercare next week. Narrative Note: []
--- NOTE | 2020-10-08 14:09 | BH.MTP ---
Master Treatment Plan - Patient Information Program Physician:: Dr. Mckenzie Pinto Primary Therapist:: Iliana PICKETT - Psychiatric Diagnoses Psychiatric Diagnoses:: Major depressive disorder, recurrent, severe without psychosis F33.2; borderline personality disorder; PTSD; alcohol use disorder (sober for 2 years); history of amphetamine, marijuana and cocaine use over for many years. Diagnosis Code(s):: F 33.2 - Estimated LOS Estimated LOS (in weeks):: 12 Problem/Goal #1 - Problem/Goal #1 Stated Goal:: client will maintain or see a reduction in symptoms AEB client score on the DSM 5 cross-cutting measure and improve client's daily functioning. - Objectives Objective #1 Stated Objective: Client will continue to consistently apply healthy coping skills to maintain progress made in IOP tx. Interventions: Through group therapy, client will review warning signs and triggers as well as healthy coping skills learned in IOP tx to successfully maintain gains while transitioning into outpatient therapy. Discharge Criteria: Client will have accomplished this goal when client's score on the DSM-5 cross-cutting measure has either maintained or reduced over a 12 week period. Target Date: 12/31/20 Review Date: 11/05/20 Status: open Objective #2 Stated Objective: Client will learn and utilize 2-3 maintenance strategies to prevent decompensation. Interventions: Through group therapy, client will be provided with education on healthy maintenance behaviors, relapse prevention techniques, and healthy coping strategies. Discharge Criteria: Client will have accomplished this goal when can report using at least 2 maintenance skills to prevent decompensation. Target Date: 12/31/20 Review Date: 11/05/20 Status: open
--- NOTE | 2020-10-15 14:00 | BH.SGPN.GN ---
Behaviors/Verbalizations/Mental Status: []Client alert and oriented, casual appearance. Eye contact fair. Motor activity appropriate. Speech within normal limits. Affect constricted, mood dysthymic. Thoughts linear, logical, no signs of hallucinations or delusions. Client Response/Progress/Benefit: []Pt responded well to session AEB pt openly sharing thoughts and feelings and completing worksheet. Pt reported she has been feeling more depressed over the last week. Pt expressed difficulty at work with thinking others are talking about her. Pt stated she also has difficulty having her roommate as her boss because pt hears co-workers talking about her roommate which puts pt in an awkward position. Pt able to identify positives with encouragement. Pt responded well to group discussion and review about self-care. Pt stated she will work on following self-care activities: cooking dinner, exercise, breathing exercises, therapy, drawing, clean house, and adventism. Pt seemed to benefit from support from peers and identifying self-care plan. Pt to continue aftercare to prevent decompensation, increase consistent healthy coping, and challenge distorted thoughts. Narrative Note: []
--- NOTE | 2020-10-29 14:00 | BH.SGPN.GN ---
Behaviors/Verbalizations/Mental Status: []Eye contact is good. Motor activity is restless. Appearance is casual. Speech is Appropriate. Mood is sad and hopeful. Affect is congruent. Thoughts are linear and logical. No evidence of psychosis. Client Response/Progress/Benefit: []Client responded well to session, client reports she has been doing ?pretty good? but client is currently grieving the loss of her AA sponsor. Receptive to emotional support from therapist and peers. Client stated she has been exercising and has been able to refrain from using unhealthy coping skills such as cutting or drinking to cope with grief. Client engaged well during the discussion of the components of self-compassion. Client connected with the benefits of self-compassion and participated in the activity of reframing a recent setback using self-compassion. Client shared she recently had an urge to drink to cope with the grief she feels, and client felt shame for thinking about drinking. Using self-compassion, client reframed this by reminding herself how much strength it takes to not return to unhealthy habits and to give herself credit. Client appeared to benefit from practicing self-compassion and connecting with peers. Will continue aftercare to promote mood stability and reinforce healthy coping skills. Narrative Note: []
== END 2020-10-31 23:59 ==
LOC: BHOG 14:00
PROVIDERS: PCP Nurse Practitioner Family; Referring Provider Psychiatry & Neurology Psychiatry; Visit Provider Psychiatry & Neurology Psychiatry
DX: F33.2 Major depressive disorder, recurrent severe without psychotic features (principal); F60.3 Borderline personality disorder; F43.10 Post-traumatic stress disorder, unspecified; Z72.89 Other problems related to lifestyle
CPT/HCPCS: 90853

== ENCOUNTER 2020-11-05 10:21 | Outpatient (RCR) | payer OTHER, SELFPAY ==
--- NOTE | 2020-11-05 14:00 | BH.SGPN.GN ---
Behaviors/Verbalizations/Mental Status: []Client alert and oriented, casually dressed and groomed. Eye contact good. Motor activity appropriate. Speech within normal limits. Affect congruent. Mood euthymic. Thoughts linear, logical, no signs of hallucinations or delusions. Client Response/Progress/Benefit: [] Client responded well to session AEB client sharing thoughts and feelings and listening attentively to peers. Client reported she is felling ?content today. Reported she is still struggling with adjusting to the grieving process and at times expects her friend to call her despite knowing that he will not. Client notes she was able to reach out to her friend?s and spend time remembering him over dinner which had been cathartic for her. Shared she is also working on a letter to her friend with her outpatient therapist. Shared this is an improvement to how she might have coped with grief in the past. Additional stressor is that client feel during work and bruised her ribs. Noted struggling to adjust to the light load requirements now but is reminding herself to slow down and ask for help which has been helpful. Client contributed to the discussion on gratitude and its benefits. Client attentive during discussion of internal vs. external gratitude. Client created weekly plan on what she will identify for gratitude over the next 7 days. Appeared to benefit from connecting with peers and creating plan to identify gratitude. Pt plan included: positive self-talk, quality time with friends, writing a thank you letter to self, and making more time for activities she enjoys. Will continue IOP aftercare to continue use of healthy coping skills, challenge distorted thoughts and maintain gains made. Narrative Note: []
--- NOTE | 2020-11-05 15:04 | BH.TPR ---
Treatment Plan Review Date of Admission:: 10/08/20 Date of Treatment Plan Review:: 11/05/20 Admitting Diagnoses:: Major depressive disorder, recurrent, severe without psychosis F33.2; borderline personality disorder; PTSD; alcohol use disorder (sober for 2 years); history of amphetamine, marijuana and cocaine use over for many years. Current Diagnoses:: Major depressive disorder, recurrent, severe without psychosis F33.2; borderline personality disorder; PTSD; alcohol use disorder (sober for 2 years); history of amphetamine, marijuana and cocaine use over for many years. Patient's Response to Treatment:: Pt responding well to treatment AEB pt's consistent attendance, active engagement in group discussions, and reporting use of skills outside treatment environment. Status of Current Problems and Symptoms: Pt's DSM-5 symptoms have slightly increased from admission to review. Pt's AA sponsor and close friend recently unexpectedly which has been a major stressor for pt. Pt has been coping fairly well with this loss and she was unable to avoid a relapse. Pt continues to report some stressors at work and negative thinking patterns that worsen when pt is overwhelmed. Pt also recently had some physical injuries that are preventing pt from exercising and being as physically active. Despite these stressors, pt continues to use healthy coping skills, denies self-harm, and pt has not had suicidal ideations which is significant progress. Problem #1 Problem Name:: Pt will maintain or see a reduction in sx AEB client score on the DSM-5 Status of Goals:: Objective 1- not complete, ongoing work encouraged. Pt's scores on the DSM-5 have slightly increased since admission due to numerous situational stressors. Pt has been able to refrain from using alcohol to cope which is significant. Objective 2- complete with ongoing work encouraged. Pt identified coping skills such as positive self-talk, avoiding drinking triggers, reaching out to supports, thought challenging, and healthy distractions. Due to pt's recent injury, she is unable to be as active and was encouraged to find alternative emotional release activities. Team Recommendations:: Recommended pt continue IOP aftercare group in addition to attending regular outpatient counseling and EMDR in order to maintain gains. Pt is also encouraged to find a new AA sponsor and to keep alcohol from her house to maintain sobriety.
--- NOTE | 2020-11-12 14:00 | BH.SGPN.GN ---
Behaviors/Verbalizations/Mental Status: []Client alert and oriented, casually dressed and groomed. Eye contact good. Motor activity appropriate. Speech within normal limits. Mood dysthymic. Affect constricted. Thoughts linear, logical, no signs of hallucinations or delusions. Client Response/Progress/Benefit: []Client responded well to session, reports feeling ?down? today due to a recent injury that is preventing client from using her usual coping skills like exercise. Client shared she has wanted to revert to unhealthy coping skills, but she has not and recognizes this as progress. Contributing during discussion of vulnerability and benefits of practicing vulnerability. Shared personal experience of how being vulnerable about her addiction history and mental health has led to client getting treatment and functioning better. Discussed ways we avoid feeling vulnerable and how this negatively affects mental health and relationships. Client shared she wants to continue to be vulnerable about her recovery and mental health symptoms. Appeared to benefit from reflecting on the positive impact vulnerability can have on mental health. Will continue IOP aftercare to promote gains and reinforce healthy coping skills Narrative Note: []
--- NOTE | 2020-11-19 14:00 | BH.SGPN.GN ---
Behaviors/Verbalizations/Mental Status: []Client alert and oriented, casually dressed and groomed. Eye contact good. Motor activity appropriate. Speech within normal limits. Affect congruent. Mood dysthymic. Thoughts linear, logical, no signs of hallucinations or delusions. Client Response/Progress/Benefit: []Client responded well to session AEB sharing thoughts and feelings and listening attentively to peers. Client reported feeling ?rawls today as she has been continuing to struggle with the grieving process. Reports she continues to reach out to supports and challenge negative thoughts; however, recently had urges to self-harm which scared her. Described several skills used to successfully manage these thoughts and discussed they were temporary in nature which is progress for client. Benefited from reflecting on areas in which she continues to progress, as well as encouragement provided by the group as well. Client contributed to the discussion on mindfulness and it?s mental, physical, and interpersonal benefits. Client attentive during discussion reviewing and demonstrating various mindfulness practices. Created weekly plan on how client will practice mindfulness over the next 7 days. Appeared to benefit from connecting with peers and creating plan to improve ability to be present. Pt plan included: going to [employer], watching a football game, going to dinner with a friend, and mindful cleaning. Will continue IOP aftercare to continue use of healthy coping skills, challenge distorted thoughts and maintain gains made. Narrative Note: []
--- NOTE | 2020-11-26 14:00 | BH.SGPN.GN ---
Behaviors/Verbalizations/Mental Status: []Client alert and oriented, casually dressed and groomed. Eye contact good. Motor activity appropriate. Speech within normal limits. Affect constricted, mood euthymic. Thoughts linear, logical, no signs of hallucinations or delusions. Client Response/Progress/Benefit: []Pt responded well to session, attentive and taking notes. Pt reports feeling ?satisfied? today as pt reports she had a good visit with family over the weekend and pt has not cut or used other unhealthy skills. Pt reports she goes back to full duty work next week and feels ready. Pt worked cooperatively with group to identify benefits of having a daily routine which included: sense of accomplishment, increased motivation, and mental health maintenance. Pt engaged in brainstorming of various daily routine ideas. Pt completed task of creating a daily routine focusing on positive self-talk and exercising as well as identified a supportive mantra. Pt shared a copy of her routine and shared her mantra of ?no negative thoughts will take root in my mind.? Pt seemed to benefit from support from peers and learning about benefits of routine. Pt to continue aftercare group to improve consistent use of healthy coping, maintain gains, and prevent decompensation. Narrative Note: []
== END 2020-12-01 23:59 ==
LOC: BHOG 10:21
PROVIDERS: PCP Nurse Practitioner Family; Referring Provider Psychiatry & Neurology Psychiatry; Visit Provider Psychiatry & Neurology Psychiatry
DX: F33.2 Major depressive disorder, recurrent severe without psychotic features (principal); F60.3 Borderline personality disorder; F43.10 Post-traumatic stress disorder, unspecified; Z72.89 Other problems related to lifestyle; F15.90 Other stimulant use, unspecified, uncomplicated; F12.90 Cannabis use, unspecified, uncomplicated; F14.90 Cocaine use, unspecified, uncomplicated
CPT/HCPCS: 90853

== ENCOUNTER 2020-12-03 09:57 | Outpatient (RCR) | payer OTHER, SELFPAY ==
--- NOTE | 2020-12-03 14:00 | BH.SGPN.GN ---
Behaviors/Verbalizations/Mental Status: []Client alert and oriented, casually dressed and groomed. Eye contact fair. Motor activity appropriate. Speech within normal limits. Affect constricted, mood depressed. Thoughts linear, logical, no signs of hallucinations or delusions. Client Response/Progress/Benefit: []Pt more passive participant compared to previous group sessions. Pt reported she made a stupid choice and has been struggling ever since. Pt shared she couldn't identify any positives in the last week because of what she had done. pt reported she self-harmed because of the choice she has made. Pt open to feedback and support from peers. Pt engaged in discussion about healthy decision making. Pt stated wanting to work on making healthy decisions with physical health. Pt reported she will focus on walking at least two times in the next week and exercising outside. Pt seemed to benefit from identifying healthy choices she can make in at least one area of her life. pt to continue aftercare to maintain gains and prevent decompensation. Narrative Note: []
--- NOTE | 2020-12-03 14:39 | BH.TPR ---
Treatment Plan Review Date of Admission:: 10/08/20 Date of Treatment Plan Review:: 12/03/20 Admitting Diagnoses:: Major depressive disorder, recurrent, severe without psychosis F33.2; borderline personality disorder; PTSD; alcohol use disorder (sober for 2 years); history of amphetamine, marijuana and cocaine use over for many years. Current Diagnoses:: Major depressive disorder, recurrent, severe without psychosis F33.2; borderline personality disorder; PTSD; alcohol use disorder (sober for 2 years); history of amphetamine, marijuana and cocaine use over for many years. Patient's Response to Treatment:: Pt responding well to treatment AEB pt's consistent attendance, active engagement in group discussions, and application of coping skills outside of IOP. However, pt reports worsening symptoms this week due to a relapse using pain medications. Pt receptive to starting AA in [place] at [facility]. Status of Current Problems and Symptoms: Pt's DSM-5 scores have increased by 39% since admission. Pt has experienced numerous stressors within the past month that have impacted her mental health and substance recovery. Pt?s sponsor of many years unexpectedly last month, pt experienced a work injury, and pt became addicted to the pain medication she was given to help with her work injury. Pt stated she is out of her pain medication and admits to going through withdrawal earlier this week. Pt had shakes, sweats, and feeling like my skin was crawling. Pt reports feeling disappointed in herself for making ?a stupid choice? which led to a relapse in self-harm as well. Pt responded well to feedback, encouragement, and gentle thought challenging from IOP staff. Pt will go to AA and continue meeting with her outpatient therapist who is dually licensed in substance abuse counseling. Problem #1 Problem Name:: Pt will maintain or see a reduction in sx AEB client score on the DSM-5 Status of Goals:: Objective 1- not complete. Pt's scores on the DSM-5 have increased by 39% since admission. Pt reports no alcohol use, but pt has been abusing her pain medications and has now run out of them. Pt has been consistent with attending outpatient therapy which is positive. Pt reports she was honest about her substance use with her outpatient therapist. 2- complete with ongoing work encouraged. Pt identified coping skills such as positive self-talk, avoiding drinking triggers, reaching out to supports, thought challenging, and healthy distractions. However, pt is currently struggling with using thought challenging and opposite action. Team Recommendations:: Recommended pt continue IOP aftercare group in addition to attending regular outpatient counseling and EMDR in order to maintain gains. Pt was also provided with the information for a local AA meeting and is to attend tomorrow evening to prevent further relapse.
--- NOTE | 2020-12-10 14:00 | BH.SGPN.GN ---
Behaviors/Verbalizations/Mental Status: []Client alert and oriented, casually dressed and appropriately groomed. Eye contact good. Motor activity appropriate. Speech within normal limits. Affect congruent, mood anxious. Thoughts linear, logical, no signs of hallucinations or delusions. Client Response/Progress/Benefit: []Pt receptive of session, engaged throughout. Pt reported she accomplished some of her goal from last week of walking and exercising one time inside. Pt reported stressor as engaging in self-harm in the past week. Pt admitted she hasn't been using her skills consistently which is keeping her from bouncing back from recent relapse. Receptive of discussion on personal accountability and its importance in maintaining mental health stability. Pt worked cooperatively with group to identify benefits of maintaining personal accountability. Engaged in brainstorming strategies for improving ability to hold themselves accountable. Pt identified that for homework will practice using accountability by doing her homework for outpatient counselor before next session. Pt seemed to benefit from support from peers and increasing understanding of personal accountability benefits and strategies. Will continue IOP aftercare group to prevent further decompensation. Narrative Note: []
--- NOTE | 2020-12-24 14:00 | BH.SGPN.GN ---
Behaviors/Verbalizations/Mental Status: []Client alert and oriented, casually dressed. Eye contact good. Motor activity appropriate. Speech within normal limits. Affect congruent, mood dysthymic. Thoughts linear, logical, no signs of hallucinations or delusions. Client Response/Progress/Benefit: []Pt responded well to session AEB pt providing input during discussion and listening attentively to peers. Pt reported feeling down today as pt continues to struggle with mood instability and has been using unhealthy coping skills. Pt shared she was honest with her roommate and her outpatient therapist about her recent relapse. Pt was encouraged again by therapist to attend an AA meeting. Pt received emotional support and encouragement from the group. Pt engaged in discussion about self-love. Connected with others that although self-care is challenging, it is vital for mental health wellness. Group discussed barriers they have faced that prevented self-love. Pt reviewed the 30 ways to improve self-love and selected two strategies to practice. Pt seemed to benefit from reviewing treatment progress and stressors as well as learning about how to increase self-love. Pt will continue IOP aftercare to prevent decompensation and to reinforce healthy coping skills. Narrative Note: []
--- NOTE | 2020-12-31 14:00 | BH.SGPN.GN ---
Behaviors/Verbalizations/Mental Status: []Client alert and oriented, casually dressed and groomed. Eye contact good. Motor activity appropriate. Speech within normal limits. Affect congruent, mood dysthymic, overwhelmed. Thoughts linear, logical, no signs of hallucinations or delusions. Client Response/Progress/Benefit: []Client responded well to session, client?s emotion today is ?anxious but content?. Shared she has been having difficulties recently with managing the various stressors in her life and has continued to struggle with falling back into unhealthy coping as a result. Receptive of supportive feedback from group and appeared to benefit from healthy emotional release suggestions provided by group. Client identified that she is spending time with supports and continuing to attend outpatient counseling. Receptive of discussion on self-talk and its influence in maintaining long-term mental health stability. Contributed to strategies for improving effective creation and application of believable personal affirmations. Client created several affirmations and shared one with the group. Client shared plans to display affirmation of I can be kind and positive towards myself to remind her to practice more positive self-talk and compassion. Client to continue aftercare group to prevent further decompensation and continue to encourage application of healthy coping skills. Narrative Note: []
--- NOTE | 2021-01-07 11:36 | BH.DS_ITS ---
Discharge Summary - Demographics Date of Admission:: 10/08/20 Discharge Date: 01/07/21 Presenting Problems at Admission:: Client discharged from [facility] tx and transitioned to IOP aftercare to maintain gains client made in IOP and to reinforce healthy coping skills. At admission to [facility] aftercare, client was still reporting mild symptoms of depression and anxiety. Client had also recently went back to work full-time after being on leave for several weeks. Client was exper iencing life stressors including EMDR therapy, recovery, work, and maintaining mental health stability. Despite these stressors, client reported ability to cope with her mental health and was activity using healthy skills. Discharge Diagnoses:: Major depressive disorder, recurrent, severe without psychosis F33.2; borderline personality disorder; PTSD; alcohol use disorder (sober for 2 years); history of amphetamine, marijuana and cocaine use over for many years. Reason for Discharge:: Client has accomplished her tx goals AEB her ability to maintain mood stability and gains made in IOP. Client will transition to traditional outpatient counseling. - Treatment Progress During Treatment & Response: Despite setbacks while in IOP aftercare, client reports a reduction of symptoms within the past few weeks. During client?s last treatment plan review, client?s scores increased, she was reporting self-injurious behaviors, and she had a recent relapse on pain medications. However, at discharge, client reports a much improved mood and stated she has not self-harmed in over a week. Client?s DSM-5 scores have decreased by 64% since admission to aftercare. Client?s depression decreased by 25%, anxiety decreased by 20%, and thoughts of actually hurting herself decreased by 100%. Client reports she got a new position at work which also seems to be helping her mood. Client denied any substance use at discharge and reports she has been seeing a new mentor/AA sponsor. Issues Still to be Addressed:: Client recently lost her AA sponsor which had triggered a relapse in substance use and mental health about a month ago. Client recently got a new sponsor and she has been encouraged to attend AA meetings again. Client can continue to benefit from outpatient counseling to reinforce healthy coping skills, replace negative core beliefs, and increase distress tolerance skills. Client was encouraged to take a break from EMDR therapy due to client's recent relapse and grief which led to more self-harming behaviors. Discharge Recommendations/Instructions:: Client will continue with outpatient counseling and psychiatry services through [facility]. Client sees Keesha for individual therapy and Dr. Bryan for psychiatry. Client also sees a trauma therapist at [facility]. Client encouraged to continue meeting weekly with her new AA sponsor and [facility] mentor. Discharge Handout: Complete Discharge Handout with client on aftercare options and continuity of care.
== END 2020-12-31 23:59 ==
LOC: BHOG 09:57
PROVIDERS: PCP Nurse Practitioner Family; Referring Provider Psychiatry & Neurology Psychiatry; Visit Provider Psychiatry & Neurology Psychiatry
DX: F33.2 Major depressive disorder, recurrent severe without psychotic features (principal); F60.3 Borderline personality disorder; F43.10 Post-traumatic stress disorder, unspecified; Z72.89 Other problems related to lifestyle
CPT/HCPCS: 90853

== ENCOUNTER → 2024-11-05 | Outpatient (CLI) | payer OTHER, SELFPAY ==
--- NOTE | 2024-11-05 11:46 | EKG12_ITS ---
Test Reason : PREOP Blood Pressure : */* mmHG Vent. Rate : 84 BPM Atrial Rate : 84 BPM P-R Int : 130 ms QRS Dur : 90 ms QT Int : 386 ms P-R-T Axes : 57 11 20 degrees QTcB Int : 456 ms Normal sinus rhythm Normal ECG Confirmed by NELLY CHASE, FABIENNE ([id number]), commissioning editor PRICE BINGHAM ([id number]) on 11/06/2024 6:49:03 AM Referred By: Cornelio Alcantara Confirmed By: FABIENNE VILLEGAS MD
== END | disposition home or self-care (01) ==
PROVIDERS: PCP Student in an Organized Health Care Education/Training Program; Referring Provider Student in an Organized Health Care Education/Training Program; Visit Provider Student in an Organized Health Care Education/Training Program
DX: Z01.818 Encounter for other preprocedural examination (principal); M20.12 Hallux valgus (acquired), left foot; M79.672 Pain in left foot
CPT/HCPCS: 93005

== ENCOUNTER → 2024-11-07 | Outpatient (CLI) | payer OTHER, SELFPAY ==
--- NOTE | 2024-11-07 15:09 | RAD_ITS ---
PROCEDURE: CHEST PA AND LATERAL 11/07/2024 REASON FOR EXAM: ENCOUNTER FOR OTHER PREPROCEDURAL EXAMINATION TECHNIQUE: CHEST PA AND LATERAL COMPARISON: None. RAD/Chest PA and Lateral IMPRESSION: Right upper quadrant abdominal surgical clips are seen. Mild right hemidiaphragm elevation is seen. Lungs appear clear of acute disease. No pleural effusion or pneumothorax is noted. The cardiomediastinal silhouette is within the normal range. [id number] degenerative changes of the visualized spine are seen. No evidence of acute cardiopulmonary disease. Reading Location: [place] [id number]
[2024-11-07 16:07] LABS: Hematocrit 38.4 % (37-47); Hemoglobin 12.3 g/dL (12.0-15.0); Immature Granulocytes Count 0.020 X10^3/uL (0.0-0.0); Mean Corp Hgb Conc 32.0 g/dL (32-36); Mean Corpuscular Volume 92.1 fL (81-99); Mean Platelet Vol. 10.8 fl (6.2-12.0); NRBC Flagged by Analyzer 0 % (0-5); Platelet Count 177 K/mm3 (150-450); RBC Distribution Width CV 13.5 % (11.6-14.6); RBC Distribution Width SD 46.0 fl (35.1-43.9); Red Blood Count 4.17 M/mm3 (4.2-5.4); White Blood Count 4.4 K/mm3 (4.4-11.0)
[2024-11-07 16:25] LABS: AST(SGOT) 23 U/L (<=31); Alanine Aminotransfer ALT/SGPT 21 U/L (<=34); Albumin, Serum 4.4 g/dL (3.4-4.8); Alkaline Phosphatase 98 U/L (35-104); Anion Gap 11 (5-15); BUN 16 mg/dL (4-19); BUN/Creat Ratio 19.9 RATIO (10-20); Calcium,Total 8.6 mg/dL (7.6-11.0); Carbon Dioxide 24.5 mmol/L (21.0-32.0); Chloride 106 mmol/L (98-108); Globulin 2.2 g/dL (2.2-4.2); Glucose 97 mg/dL (70-99); Potassium 4.3 mmol/L (3.3-5.1)
== END | disposition home or self-care (01) ==
PROVIDERS: PCP Student in an Organized Health Care Education/Training Program; Referring Provider Student in an Organized Health Care Education/Training Program; Visit Provider Student in an Organized Health Care Education/Training Program
DX: Z01.818 Encounter for other preprocedural examination (principal); M20.12 Hallux valgus (acquired), left foot; M79.672 Pain in left foot
CPT/HCPCS: 36415; 71046; 80053; 85025